=== PATIENT | female | born 1965 | race Caucasian/White ===

== ENCOUNTER 2017-06-14 10:05 | Day surgery (SDC) | payer OTHER ==
[~2017-06-14 10:05] MED LIST: RINGER'S SOLUTION,LACTATED 1,000 ML IV PRN
[2017-06-14] MEDS ORDERED: ACETAMINOPHEN 500 MG TABLET PO ONE (12:25)
[2017-06-14] MEDS ORDERED: RINGER'S SOLUTION,LACTATED 1,000 ML IV PRN (13:00)
[2017-06-14 13:25] VITALS: BP 166/84
--- NOTE | 2017-06-14 14:33 | OR ---
Operative Report - Dictated Report Narrative: OPERATIVE REPORT DATE OF OPERATION: 06/14/2017 PREOPERATIVE DIAGNOSIS: No prior dedicated colon studies. Family history of colon cancer. POSTOPERATIVE DIAGNOSIS: 3 mm cecal polyp (pathology pending) OPERATION: Colonoscopy with hot biopsy forceps polypectomy in the cecum SURGEON: Ankit Leahy MD ANESTHESIA: SANDOVAL Meza CRNA INDICATIONS FOR PROCEDURE: The patient is a 52-year-old female referred by Dr. Zheng. The patient's brother had colon cancer at age 52. The patient has had no previous dedicated colon studies. She is currently asymptomatic FINDINGS: 3 mm area of polypoid change in the cecum (pathology pending). Otherwise normal colonoscopy to the cecum. NARRATIVE OF PROCEDURE: The patient was identified in the holding area, and prior to the administration of anesthetic, a multidisciplinary timeout was observed. With the patient in the left lateral position and after the administration of intravenous sedation, the perineum was inspected. There was no evidence of pilonidal disease or skin breakdown. The external appearance of the anus was normal. Sphincter tone was good. The flexible fiberoptic colonoscope was inserted into the rectum which was insufflated with air. The rectal mucosa and submucosal vascular pattern appeared normal, the prep was seen to be complete. The scope was advanced through the sigmoid colon, up the descending colon, and around the splenic flexure where the triangular haustral architecture of the transverse colon was seen. The scope was advanced across the transverse colon, around the hepatic flexure to the cecum, where the confluence of tenia and the ileocecal valve were identified. Just adjacent to the ileocecal valve was a 3 mm area of possible polypoid change. This was biopsied and then thoroughly destroyed with electrocautery. The site was seen to be complete and hemostatic. The mucosa at this level appeared otherwise normal. The scope was then slowly withdrawn in a circular fashion so that all aspects of colonic mucosa were inspected. The colon was normal in course and caliber. The haustral architecture appeared well preserved throughout with no evidence of external compression. The mucosa and submucosal vascular pattern appeared normal, specifically there was no gross evidence to suggest colitis or inflammatory bowel disease and no AV malformations were seen. No diverticulosis was demonstrated. No additional polyps were encountered. The scope was gradually withdrawn to the level of the rectum. As much insufflated air as possible was removed. The scope was withdrawn from the patient and the procedure terminated. The patient tolerated the anesthetic and procedure well without complication and was transferred back to the ambulatory surgery area awake and in stable condition. The patient remained stable throughout a period of postoperative observation. She denied abdominal discomfort, was able to tolerate by mouth intake, and was up without assistance. I shared the operative findings with the patient and she was given copies of the photographs which appear in the medical record. She was discharged home with instructions not to engage in hazardous activity today , but may resume normal activity tomorrow, and advance diet as tolerated. She is to continue those medications as listed in the history and physical exam. I made arrangements to contact her with the biopsy reports and will make additional recommendations for treatment and follow-up based upon those results. Reviewed and electronically signed
== END 2017-06-14 10:06 | disposition home or self-care (01) ==
LOC: AMB 10:05
PROVIDERS: ATTEND Surgery
PROC: 0DBH8ZX Excision of Cecum, Via Natural or Artificial Opening Endoscopic, Diagnostic (ICD-10-PCS; principal; 2017-06-14 10:45)
DX: Z12.11 Encounter for screening for malignant neoplasm of colon (principal); K63.5 Polyp of colon; I10 Essential (primary) hypertension; E11.9 Type 2 diabetes mellitus without complications; J44.9 Chronic obstructive pulmonary disease, unspecified; K21.9 Gastro-esophageal reflux disease without esophagitis; Z87.891 Personal history of nicotine dependence; Z68.41 Body mass index [BMI] 40.0-44.9, adult; Z80.0 Family history of malignant neoplasm of digestive organs

== ENCOUNTER 2017-06-22 21:30 | Emergency (ER) | payer OTHER ==
[2017-06-22 21:59] LABS: Urine Bilirubin Negative (NEGATIVE); Urine Blood 250 /ul (NEGATIVE); Urine Ketone Negative (NEGATIVE); Urine Protein 100 mg/dL (NEGATIVE); Urine Specific Gravity 1.025 SP.GR. (1.005-1.010); Urine Urobilinogen Normal (NORMAL)
[2017-06-22 22:11] LABS: Urine Appearance Slightly Cloudy; Urine Color Yellow; Urine Nitrite Positive (NEGATIVE); Urine RBC 25-50 /hpf (0-5); Urine WBC 0-5 /hpf (0-5)
[2017-06-22 22:12] LABS: Urine Bacteria TRACE
[2017-06-22 22:12] LABS: Hemoglobin 13.7 gm/dL (12.5-16.0); Mean Cell Volume 88.9 fl (78-100); Mean Corpuscular Hemoglobin 29.7 pg (27-31); Mean Corpuscular Hgb Conc 33.4 g/dl (32-36); Mean Platelet Volume 9.8 fl (6.0-9.5); Neutrophil # 8.7 K/mm3 (1.3-6.0); Neutrophil % 72.7 % (42-75.0); Platelet Count 322 K/mm3 (150-450); Red Blood Count 4.61 M/mm3 (4.2-5.4)
--- NOTE | 2017-06-22 22:14 | ERNOTE ---
ER Female HPI Stated Complaint: rt side abd pain Presenting Symptoms: dysuria Time Seen by Provider: 06/22/17 21:45 Source: patient Exam Limitations: no limitations Immunizations: IMMUNIZATION HX Immunizations Up to Date Yes History of Influenza Vaccine No Hx Pneumococcal Vaccination No Allergies/Adverse Reactions: Allergies acetaminophen [From Percocet] Allergy (Mild, Verified 06/14/17 10:25) Hives started taking this along with Lipitor and Plavix and had the reaction. Unsure to which med. States that she can take Tylenol with no problems and has taken Morphine with no problems as well. atorvastatin calcium [From Lipitor] Allergy (Mild, Verified 06/14/17 10:25) Hives started taking this along with Percocet and Plavix, unsure which med caused the reaction. clopidogrel bisulfate [From Plavix] Allergy (Mild, Verified 06/14/17 10:25) Hives started to take this med along with Lipitor and Percocet, unsure which med caused the reaction oxycodone HCl [From Percocet] Allergy (Mild, Verified 06/14/17 10:25) Hives started taking this along with Lipitor and Plavix and had the reaction. Unsure to which med. Penicillins Allergy (Mild, Verified 06/14/17 10:25) RASH, SWELLING Home Medications: HOME MEDICATIONS Insulin NPH Hum/Reg Insulin Hm [Humulin 70-30 Vial] 30 unit SQ QAM 06/30/12 [ Last Taken Unknown] Metoprolol Tartrate 200 mg PO HS 06/30/12 [Last Taken 06/14/17 05:00] Aspirin [Aspirin Enteric Coated] 81 mg PO DAILY 05/21/17 [Last Taken Unknown] Hydrochlorothiazide [Hydrodiuril] 25 mg PO DAILY 05/21/17 [Last Taken Unknown] Insulin NPH Hum/Reg Insulin Hm [Humulin 70-30] 70 unit SC QPM 05/21/17 [Last Taken Unknown] Lisinopril [Zestril] 40 mg PO BID 05/21/17 [Last Taken 06/14/17 05:00] Methylcellulose [Fiber] 500 mg PO DAILY 05/21/17 [Last Taken Unknown] Multivit-Min/Folic Acid/Vit K1 [Multi For Her 50 Plus Softgel] 1 each PO DAILY 05/21/17 [Last Taken Unknown] Omeprazole 40 mg PO DAILY 05/21/17 [Last Taken Unknown] traMADol HCL [Ultram] 50 mg PO TID PRN 05/21/17 [Last Taken Unknown] traZODone HCL [Desyrel] 50 - 100 mg PO HS PRN 05/21/17 [Last Taken Unknown] Ciprofloxacin HCl [Cipro] 500 mg PO BID #28 tablet 06/22/17 [Last Taken Unknown] Phenazopyridine HCl [Pyridium] 100 mg PO TID #6 tablet 06/22/17 [Last Taken Unknown] - History of Present Illness Narrative: onset of dysuria 2 days ago feeling like "my insides were going to come out". Increasing frequency of urine. Timing: Present: getting worse Quality: Present: severe, burning Onset Location: Present: urethral Radiation: Present: RLQ Activities at Onset: Present: none Sexual [place] History: Present: single partner Modifying Factors - (Worsens): Present: urinating Associated Symptoms: Present: urinary frequency. Absent: fever/chills Prior Treatment: Present: recently seen, treated by physician - for URI Review of Systems - Review of Systems Constitutional: Present: recent illness, malaise EYE: Present: no symptoms reported ENT: Present: nose congestion, nasal drainage Respiratory: Present: cough - last week Cardiology: Present: no symptoms reported Gastrointestinal/Abdominal: Present: diarrhea - prior to these symptoms Genitourinary: Present: See HPI, hematuria Musculoskeletal: Present: no symptoms reported Skin: Present: no symptoms reported Neurological: Present: no symptoms reported Endocrine: Present: no symptoms reported Hematologic/Lymphatic: Present: no symptoms reported Psych: Present: no symptoms reported - Patient's Past Medical History Patient History - Medical: Diabetes Type 2 Insulin Dependent, GERD, Headache Patient History - Cardiac/Respiratory: COPD, Hypertension Patient History - Cancer: No Hx of Cancer Patient History - Surgical Procedures: Colonoscopy, Tubal Ligation, Other Patient History - Other: None - Family History Mother Family History - Medical: , Other Family History - Cardiac/Respiratory: No pertinent hx Family History - Cancer: Cervical Father Family History - Medical: , Diabetes Type 2 Family History - Cardiac/Respiratory: Hypertension, Myocardial Infarction Family History - Cancer: No pertinent family hx - Social History Living Situations: spouse Abuse History: No History of abuse Psych History: No pertinent hx Smoking Status: Former smoker Have you smoked in the past 12 months: No Do you dip or chew tobacco: No Alcohol Use: rarely Drug Use: none - Immunizations Immunizations Up to Date: Yes Hx Pneumococcal Vaccination: No History of Influenza Vaccine: No Physical Exam - Physical Exam General Appearance: Present: wd/wn, alert, mild distress Head Exam: Present: normal inspection, no evidence of injury Neck: Present: normal inspection, full range of motion Respiratory: Present: no respiratory distress, normal breath sounds, no accessory muscle use, lungs clear Cardiovascular/Chest: Present: regular rate, rhythm, no murmur, normal peripheral pulses Gastrointestinal/Abdominal: Present: normal bowel sounds, tenderness - RLQ. Absent: distended, guarding, rebound Back Exam: Present: normal inspection Extremity Exam: Present: normal inspection, normal range of motion Neurological Exam: Present: alert, oriented, normal mood/affect Skin Exam: Present: normal color, warm/dry Lymphatic Exam: Present: no adenopathy ED Progress - Results and Orders Patient's Lab Results:: I have reviewed the patient's lab results. Results and Orders: Laboratory Tests 06/22/17 21:45 Urine Color Yellow Urine Appearance Slightly cloudy Urine pH 6.0 Ur Specific [place] 1.025 Urine Protein 100 H Urine Glucose (UA) Negative Urine Ketones Negative Urine Blood 250 H Urine Nitrate Positive H Urine Bilirubin Negative Prot Sulfosalicylic Acd Pending Urine Urobilinogen Normal Ur Leukocyte Esterase 100 H Urine RBC 25-50 H Urine WBC 0-5 Ur Epithelial Cells 0-5 Urine Bacteria Trace Urine Culture Comments Culture to follow Laboratory Tests 06/22/17 06/22/17 22:07 22:07 WBC 12.0 H Hgb 13.7 Hct 41.0 Plt Count 322 Sodium 142 Potassium 4.1 Chloride 105 Carbon Dioxide 28.0 BUN 33 H Creatinine 1.55 H D Random Glucose 140 H Calcium 9.8 Total Bilirubin 0.2 AST 20 ALT 34 Alkaline Phosphatase 154 Total Protein 8.0 Albumin 3.8 - Vital Signs Patient's Vital Signs:: I have reviewed the patient's vital signs. Vital Signs: Vital Signs 06/22/17 21:36 Temperature 36.4 C L Pulse Rate 79 Respiratory 16 Rate Blood Pressure 230/98 O2 Sat by Pulse 98 Oximetry - Progress/Reassessment Chief Complaint: Genitourinary Problem Departure Clinical Impression: Pyelonephritis - Departure Disposition: Home self-care Condition: Good Instructions: Pyelonephritis, Adult, [id number] Additional Instructions: Take medications until gone. Drink plenty of water. Referrals: Sherry Zheng DO [Primary Care Provider] - Prescriptions: Ciprofloxacin HCl [Cipro] 500 mg PO BID #28 tablet Phenazopyridine HCl [Pyridium] 100 mg PO TID #6 tablet
[2017-06-22] MEDS ORDERED: CIPROFLOXACIN HCL 250 MG TABLET PO ONE (22:21)
[2017-06-22] MEDS ORDERED: PHENAZOPYRIDINE HCL 100 MG TABLET PO ONE (22:23)
[2017-06-22] MEDS ORDERED: PHENAZOPYRIDINE HCL 100 MG TABLET ONE (22:26)
[2017-06-22] MEDS ORDERED: CIPROFLOXACIN HCL 250 MG TABLET ONE (22:26)
[2017-06-22 22:34] LABS: Albumin * 3.8 gm/dl (3.4-5.0); Anion Gap 13.1 mmol/L (6.8-13.8); BUN/Creatinine Ratio 21.3 (9.0-21.6); Bilirubin, Total 0.2 mg/dL (0.0-1.1); Ca. Corrected For Albumin 9.6 mg/dL (8.4-10.2); Calcium * 9.8 mg/dL (7.9-10.9); Potassium 4.1 mmol/L (3.4-4.6)
[2017-06-22 22:42] VITALS: BP 174/88
== END 2017-06-22 22:39 | disposition home or self-care (01) ==
LOC: ER 21:30
DX: N12 Tubulo-interstitial nephritis, not specified as acute or chronic (principal); E11.9 Type 2 diabetes mellitus without complications; Z79.4 Long term (current) use of insulin; K21.9 Gastro-esophageal reflux disease without esophagitis; J44.9 Chronic obstructive pulmonary disease, unspecified; I10 Essential (primary) hypertension

== ENCOUNTER 2018-11-29 11:59 | Observation (INO) ==
--- NOTE | 2018-11-29 12:23 | ERNOTE ---
Date of Service: 11/29/18 Time Seen by Provider: 11/29/18 12:22 Stated Complaint: uri Presenting Symptoms:: cough Source: patient Exam Limitations: no limitations Immunizations: IMMUNIZATION HX Immunizations Up to Date Yes History of Influenza Vaccine Yes Hx Pneumococcal Vaccination No Allergies/Adverse Reactions: Allergies acetaminophen [From Percocet] Allergy (Mild, Verified 11/29/18 14:29) Hivcourtney started taking this along with Lipitor and Plavix and had the reaction. Unsure to which med. States that she can take Tylenol with no problems and has taken Morphine with no problems as well. atorvastatin calcium [From Lipitor] Allergy (Mild, Verified 11/29/18 14:29) Hives started taking this along with Percocet and Plavix, unsure which med caused the reaction. clopidogrel bisulfate [From Plavix] Allergy (Mild, Verified 11/29/18 14:29) Hives started to take this med along with Lipitor and Percocet, unsure which med caused the reaction oxycodone HCl [From Percocet] Allergy (Mild, Verified 11/29/18 14:29) Hives started taking this along with Lipitor and Plavix and had the reaction. Unsure to which med. Penicillins Allergy (Mild, Verified 11/29/18 14:29) RASH, SWELLING Home Medications: HOME MEDICATIONS Aspirin [Aspirin Enteric Coated] 81 mg PO DAILY 05/21/17 [Last Taken Unknown] Methylcellulose [Fiber] 2 gm PO DAILY 05/21/17 [Last Taken Unknown] Multivit-Min/Folic Acid/Vit K1 [Multi For Her 50 Plus Softgel] 1 ea PO DAILY 05/21/17 [Last Taken Unknown] lancets See Dose Instructions .ROUTE .MEDSUPPLY #100 ea 02/21/18 [Last Taken Unknown] blood sugar diagnostic strips See Dose Instructions .ROUTE .MEDSUPPLY #20 ea 03/02/18 [Last Taken Unknown] blood-glucose meter kit See Dose Instructions .ROUTE .MEDSUPPLY #1 ea 03/02/18 [Last Taken Unknown] diphenhydramine 2 % topical gel 1 applic TP TID-QID PRN 03/02/18 [Last Taken Unknown] foot care products pads See Dose Instructions .ROUTE .MEDSUPPLY #1 ea 03/02/18 [Last Taken Unknown] insulin syringe U-100 with needle 1 mL 29 gauge x 1/2" See Dose Instructions .ROUTE .MEDSUPPLY #1 ea 03/02/18 [Last Taken Unknown] blood sugar diagnostic strips See Dose Instructions .ROUTE .MEDSUPPLY #100 ea 04/21/18 [Last Taken Unknown] omeprazole 40 mg capsule,delayed release 40 mg PO DAILY #90 cap 07/05/18 [Last Taken Unknown] hydrochlorothiazide 25 mg tablet 25 mg PO DAILY #30 tab 07/20/18 [Last Taken Unknown] sertraline 50 mg tablet 50 mg PO DAILY #30 tab 08/01/18 [Last Taken Unknown] trazodone 50 mg tablet 50 - 100 mg PO HS PRN #60 tab 10/05/18 [Last Taken Unknown] metformin ER 500 mg tablet,extended release 24 hr 1,000 mg PO BID #120 tab 10/17/18 [Last Taken Unknown] metoprolol tartrate 100 mg tablet 200 mg PO BID #120 tab 10/17/18 [Last Taken Unknown] lisinopril 40 mg tablet 40 mg PO BID #60 tab 10/27/18 [Last Taken Unknown] ranitidine 150 mg tablet 150 mg PO BID #60 tab 10/27/18 [Last Taken Unknown] DiabeticShoe See Dose Instructions .ROUTE .MEDSUPPLY #1 ea 11/01/18 [Last Taken Unknown] acetaminophen 500 mg tablet 1,000 mg PO Q6H PRN tab 11/04/18 [Last Taken Unknown] insulin human U-100 NPH-regulr 70-30 mix 100 unit/mL subcutaneous susp See Rx Instructions SUB-Q .COMPLEX #10 ml 11/08/18 [Last Taken Unknown] insulin syringe U-100 with needle 1 mL 31 gauge x 5/16" See Dose Instructions .ROUTE .MEDSUPPLY #100 ea 11/15/18 [Last Taken Unknown] amlodipine 10 mg tablet See Rx Instructions .ROUTE .COMPLEX #30 tablet 11/16/18 [Last Taken Unknown] furosemide 40 mg tablet See Rx Instructions .ROUTE .COMPLEX #60 tablet 11/16/18 [Last Taken Unknown] gabapentin 600 mg tablet See Rx Instructions .ROUTE .COMPLEX #90 tablet 11/16/18 [Last Taken Unknown] - Pain Score Pain Score #1 Pain Score: 6 - History of Present Ilness Narrative: The patient is a 53 year old female who presents for dyspnea and cough which has been present since yesterday. There are associated symptoms of fatigue and body aches. The patient reports generalized body aches, 6/10. There are no alleviating factors. There are aggravating factors of activity. Previous treatments have included: over the counter decongestant without improvement. The past medical history includes: chronic pain, COPD, DJD, DM HTN, GERD, HLD, anemia, PUD and depression. The social history is positive for previous tobacco use. The patient has had ill contacts at home. Review of Systems - Review of Systems Constitutional: Present: chills, fatigue. Absent: fever EYE: Present: no symptoms reported ENT: Present: ear pain, nose congestion, sore throat. Absent: nasal drainage Respiratory: Present: shortness of breath, cough, wheezing Cardiology: Present: chest pain Gastrointestinal/Abdominal: Present: no symptoms reported. Absent: nausea, vomiting, diarrhea Genitourinary: Present: no symptoms reported. Absent: decreased urinary output Musculoskeletal: Present: no symptoms reported Skin: Present: no symptoms reported. Absent: rash Neurological: Present: no symptoms reported All Other Systems: All systems neg except as marked Medical History (Updated 11/01/18 @ 15:23 by Marychuy Baig MD) Depression (Acute) start sertraline 50 mg daily Type II diabetes mellitus (Chronic) Iron deficiency (Chronic) Chronic pain (Chronic) Peptic ulcer disease (Chronic) GERD (gastroesophageal reflux disease) (Chronic) Hyperlipidemia (Chronic) Type II diabetes mellitus (Chronic) Hypertension (Chronic) Pyelonephritis (Acute) COPD (chronic obstructive pulmonary disease) Onset Date: Unknown Carpal tunnel syndrome Onset Date: ~05/21/17 Chronic pain Onset Date: ~05/21/17 Cubital tunnel syndrome Onset Date: ~05/21/17 DJD (degenerative joint disease) of cervical spine Onset Date: ~05/21/17 Diabetes mellitus, type II Onset Date: Unknown Essential hypertension Onset Date: ~05/21/17 GERD (gastroesophageal reflux disease) Onset Date: Unknown Headache Onset Date: Unknown Hyperlipidemia Onset Date: ~05/21/17 Hypertension Onset Date: Unknown Iron deficiency anemia Onset Date: ~05/21/17 Morbid obesity Onset Date: ~05/21/17 Obesity Class III = extreme obesity PUD (peptic ulcer disease) Onset Date: ~05/21/17 Peripheral neuropathic pain Onset Date: ~05/21/17 Peripheral neuropathy Onset Date: ~05/21/17 Primary osteoarthritis involving multiple joints Onset Date: ~05/21/17 Surgical History: Surgical History (Updated 03/02/18 @ 14:45 by Sheyla Moreno, CRUZ) Colonoscopy planned Onset Date: ~06/14/17 with biopsy. Tosin- hyperplastic polyp. Recheck 5-10 years H/O foot surgery Onset Date: ~2009 Dr Win - right 01/09/2010, left 02/13/2010 - Excision of plantar fibroma History of temporal artery biopsy Onset Date: ~12/10/17 Tosin, right-negative S/P tubal ligation Onset Date: ~1989 Stenosis of peripheral vascular stent Onset Date: ~2011 [facility] Family History: Family History (Updated 03/02/18 @ 14:34 by Sheyla Moreno, CRUZ) Brother Myocardial infarction CVA (cerebral vascular accident) Cancer colon Daughter Lupus Hypertension Diabetes Father , 60's Hypertension Diabetes Myocardial infarction Mother , 60's Amyotrophic lateral sclerosis (ALS) Cancer cervical Sister , 8 month old-pneumonia No problems noted. Sister Embolism Seizure Social History: Preferred Language [place] Smoking Status Former smoker Abuse History No History of abuse Psych History No pertinent hx Alcohol Use none Drug Use none (Last Reviewed 11/25/18 @ 13:44 by Estefany Arcos RN) No Social History Section defined Physical Exam - Physical Exam General Appearance: Present: wd/wn, alert, moderate distress Head Exam: Present: normal inspection Eye Exam: Normal inspection: bilateral Ears, Nose, Throat: Present: normal ENT inspection, normal pharynx Neck: Present: normal inspection Respiratory: Present: chest nontender, respiratory distress, accessory muscle use, decreased breath sounds, wheezing - posterior expiratory wheeze to RLL, inspiratory and expiratory wheeze diffuse anterior Cardiovascular/Chest: Present: regular rate, rhythm, no murmur Neurological Exam: Present: alert, oriented, normal mood/affect Skin Exam: Present: normal color, warm/dry Progress - Date and Time Seen: Date and Time: 11/29/18 14:32 Discussed case with and will admit patient due to hypoxia and possible obstructive pneumonia vs hilar mass. Discussed follow up need for chest CT with . - Results and Orders Patient's Lab Results:: I have reviewed the patient's lab results. - Vital Signs Patient's Vital Signs:: I have reviewed the patient's vital signs. Vital Signs: Vital Signs 11/29/18 12:19 Temperature 37.5 C Pulse Rate 78 Respiratory Rate 16 Blood Pressure 160/87 H O2 Sat by Pulse Oximetry 91 L - X-Ray X-Ray #1 X-Ray: chest Interpretation: Reviewed by me X-ray Comments: IMPRESSION: 1. Enlarged appearance of the right hilum, with anterior segment right upper lobe atelectasis. Correlate clinically for postobstructive pneumonia. Further evaluation by chest CT is recommended, to rule out a possible right hilar mass or lymphadenopathy. CT imaging can be performed on nonemergent basis unless otherwise clinically indicated. 2. Additional comments are as above. Emergency room provider Sharmaine Purvis was informed regarding the above results by telephone on 11/29/2018 1:13 PM. - Progress/Reassessment Chief Complaint: Cough Progress:: Unchanged Progress Note-Subjective: 11/29/18 14:34 Remains having wheezing to right post treatment with diminished lung sounds. Follow treatment patient sats at rest were noted to be 86% on RA and was placed on oxygen 2l/nc. Departure Clinical Impression: Hypoxia Pneumonia Qualifiers: Pneumonia type: due to unspecified organism Laterality: right Lung location: upper lobe of lung Qualified Code(s): J18.1 - Lobar pneumonia, unspecified organism - Departure Disposition: Still a patient Condition: Fair
[2018-11-29] MEDS ORDERED: METHYLPREDNISOLONE SOD SUCC/PF 125 MG/2 ML VIAL IV ONE (12:30)
[2018-11-29] MEDS ORDERED: ALBUTEROL SULFATE/IPRATROPIUM 3 ML NEBU IH ONE (12:30)
[2018-11-29 12:43] LABS: Hematocrit 43.9 % (37.0-47.0); Hemoglobin 14.1 gm/dL (12.5-16.0); Mean Cell Volume 91.6 fl (78-100); Mean Corpuscular Hemoglobin 29.4 pg (27-31); Mean Corpuscular Hgb Conc 32.1 g/dl (32-36); Mean Platelet Volume 9.8 fl (8-12.5); Neutrophil # 7.3 K/mm3 (1.3-6.0); Neutrophil % 78.4 % (42-75.0); Platelet Count 322 K/mm3 (150-450); Red Blood Count 4.79 M/mm3 (4.2-5.4); Red Cell Distribution Width 12.8 % (11.5-14.0); White Blood Count 9.3 K/mm3 (4.0-10.5)
[2018-11-29 12:56] LABS: Albumin * 3.4 gm/dl (3.4-5.0); Anion Gap 13.5 mmol/L (6.8-13.8); BUN/Creatinine Ratio 22.8 (9.0-21.6); Bilirubin, Total 0.3 mg/dL (0.0-1.1); Calcium * 9.8 mg/dL (7.9-10.9); Carbon Dioxide 27.9 mmol/L (24-32.6); Potassium 4.4 mmol/L (3.4-4.6); Total Protein 7.5 gm/dL (6.2-8.2)
[2018-11-29] MEDS ORDERED: AZITHROMYCIN 250 MG TABLET PO ONE (13:23)
[2018-11-29] MEDS ORDERED: cefTRIAXone SODIUM 1,000 MG/100 ML BAG IV ONE (13:23)
[2018-11-29] MEDS ORDERED: traZODone HCL 50 MG TABLET PO PRN (16:43)
[2018-11-29] MEDS ORDERED: BENZONATATE 100 MG CAPSULE PO PRN (16:43)
[2018-11-29] MEDS ORDERED: guaiFENesin 100 MG/5 ML BTL PO PRN (16:49)
[2018-11-29] MEDS ORDERED: ALBUTEROL SULFATE/IPRATROPIUM 3 ML NEBU IH PRN (16:49)
[2018-11-29] MEDS ORDERED: HUM INSULIN NPH/REG INSULIN HM 100 UNIT/ML VIAL SC SCH (17:00)
[2018-11-29] MEDS: GABAPENTIN 600 MG TABLET PO SCH (17:06)
--- NOTE | 2018-11-29 17:18 | HP ---
Chief Complaint - Chief Complaint Date of Service: 11/29/18 Time of Service: 16:45 Chief Complaint: Shortness of breath, chest tightness, productive cough History of Present Illness: 53-year-old female with a past medical history of COPD, depression, GERD, hyperlipidemia, hypertension, diabetes mellitus type 2, iron deficiency anemia, morbid obesity, peripheral neuropathy presents with complaint of productive cough, increased green sputum production and shortness of breath times 1 day. She is a former smoker but has a [id number] history of smoking, began smoking at the age of 14 and quit 3 years ago. She states her symptoms began last night. She had a sick contact with a granddaughter who had bronchitis and asthma exacerbation. Denies fever, abdominal pain. Associated with chest tightness. She presented today to the ER and was admitted for COPD exacerbation and pneumonia. Chest x-ray showed enlarged right hilum with anterior segment right upper lobe atelectasis, possible postobstructive pneumonia. Radiologist recommends CT chest as an outpatient to rule out right hilar mass or lymphadenopathy. Medical History (Updated 11/29/18 @ 14:34 by VANCE Voss) Depression (Acute) start sertraline 50 mg daily Iron deficiency (Chronic) Chronic pain (Chronic) Peptic ulcer disease (Chronic) GERD (gastroesophageal reflux disease) (Chronic) Hyperlipidemia (Chronic) Type II diabetes mellitus (Chronic) Hypertension (Chronic) Pyelonephritis (Acute) COPD (chronic obstructive pulmonary disease) Onset Date: Unknown Carpal tunnel syndrome Onset Date: ~05/21/17 Chronic pain Onset Date: ~05/21/17 Cubital tunnel syndrome Onset Date: ~05/21/17 DJD (degenerative joint disease) of cervical spine Onset Date: ~05/21/17 GERD (gastroesophageal reflux disease) Onset Date: Unknown Headache Onset Date: Unknown Hyperlipidemia Onset Date: ~05/21/17 Hypertension Onset Date: Unknown Iron deficiency anemia Onset Date: ~05/21/17 Morbid obesity Onset Date: ~05/21/17 Obesity Class III = extreme obesity PUD (peptic ulcer disease) Onset Date: ~05/21/17 Peripheral neuropathic pain Onset Date: ~05/21/17 Peripheral neuropathy Onset Date: ~05/21/17 Primary osteoarthritis involving multiple joints Onset Date: ~05/21/17 Surgical History: Surgical History (Updated 03/02/18 @ 14:45 by Sheyal Moreno RN) Colonoscopy planned Onset Date: ~06/14/17 with biopsy. Tosin- hyperplastic polyp. Recheck 5-10 years H/O foot surgery Onset Date: ~2009 Dr Win - right 01/09/2010, left 02/13/2010 - Excision of plantar fibroma History of temporal artery biopsy Onset Date: ~12/10/17 Tosin, right-negative S/P tubal ligation Onset Date: ~1989 Stenosis of peripheral vascular stent Onset Date: ~2011 [facility] Family History: Family History (Updated 03/02/18 @ 14:34 by Sheyla Moreno RN) Brother Cancer colon CVA (cerebral vascular accident) Myocardial infarction Daughter Diabetes Hypertension Lupus Father , 60's Myocardial infarction Diabetes Hypertension Mother , 60's Cancer cervical Amyotrophic lateral sclerosis (ALS) Sister , 8 month old-pneumonia No problems noted. Sister Seizure Embolism Social History: Patient Lives/Resources Home Utilized Preferred Language Italian Do you have any christian or No cultural preference? Smoking Status Former smoker Have you smoked in the past 12 No months Abuse History No History of abuse Psych History No pertinent hx Alcohol Use none Drug Use none (Last Reviewed 11/25/18 @ 13:44 by Estefany Arcos RN) No Social History Section defined Review Of Systems (GEN) - Review of Systems Generalized/Overall Review: Absent: Fever Respiratory: Present: Cough, Shortness of Breath Cardiac: Present: Other - Chest tightness Abdominal: Absent: Abdominal Pain Misc: All systems neg except as marked Immunizations: IMMUNIZATION HX Immunizations Up to Date Yes History of Influenza Vaccine Yes Hx Pneumococcal Vaccination No Allergies/Adverse Reactions: Allergies Allergy/AdvReac Type Severity Reaction Status Date / Time acetaminophen [From Percocet] Allergy Mild Hives Verified 11/29/18 14:29 atorvastatin calcium Allergy Mild Hives Verified 11/29/18 14:29 [From Lipitor] clopidogrel bisulfate Allergy Mild Hives Verified 11/29/18 14:29 [From Plavix] oxycodone HCl [From Percocet] Allergy Mild Hives Verified 11/29/18 14:29 Penicillins Allergy Mild RASH, Verified 11/29/18 14:29 SWELLING Home Medications: HOME MEDICATIONS Aspirin [Aspirin Enteric Coated] 81 mg PO DAILY 05/21/17 [Last Taken Unknown] lancets See Dose Instructions .ROUTE .MEDSUPPLY #100 ea 02/21/18 [Last Taken Unknown] blood sugar diagnostic strips See Dose Instructions .ROUTE .MEDSUPPLY #20 ea 03/02/18 [Last Taken Unknown] blood-glucose meter kit See Dose Instructions .ROUTE .MEDSUPPLY #1 ea 03/02/18 [Last Taken Unknown] insulin syringe U-100 with needle 1 mL 29 gauge x 1/2" See Dose Instructions .ROUTE .MEDSUPPLY #1 ea 03/02/18 [Last Taken Unknown] blood sugar diagnostic strips See Dose Instructions .ROUTE .MEDSUPPLY #100 ea 04/21/18 [Last Taken Unknown] omeprazole 40 mg capsule,delayed release 40 mg PO DAILY #90 cap 07/05/18 [Last Taken Unknown] trazodone 50 mg tablet 50 - 100 mg PO HS PRN #60 tab 10/05/18 [Last Taken Unknown] metoprolol tartrate 100 mg tablet 200 mg PO BID #120 tab 10/17/18 [Last Taken Unknown] lisinopril 40 mg tablet 40 mg PO BID #60 tab 10/27/18 [Last Taken Unknown] ranitidine 150 mg tablet 150 mg PO BID #60 tab 10/27/18 [Last Taken Unknown] acetaminophen 500 mg tablet 1,000 mg PO Q6H PRN tab 11/04/18 [Last Taken Unknown] insulin syringe U-100 with needle 1 mL 31 gauge x 12/29" See Dose Instructions .ROUTE .MEDSUPPLY #100 ea 11/15/18 [Last Taken Unknown] Albuterol Sulfate [Albuterol Sulfate 2.5 MG/0.5ML] 1 vial INHALATION Q6H PRN 11/29/18 [Last Taken Unknown] Amlodipine Besylate 1 dose PO DAILY 11/29/18 [Last Taken Unknown] Benzonatate 100 mg PO HS PRN 11/29/18 [Last Taken Unknown] Furosemide [Lasix] 40 mg PO BID 11/29/18 [Last Taken Unknown] Gabapentin [Neurontin] 600 mg PO TID 11/29/18 [Last Taken Unknown] Insulin NPH Hum/Reg Insulin Hm [Humulin 70-30] 35 units SUB-Q DAILY 11/29/18 [Last Taken Unknown] Insulin NPH Hum/Reg Insulin Hm [Humulin 70-30] 75 unit SC HS 11/29/18 [Last Taken Unknown] Phentermine HCl [Adipex-P] 37.5 mg PO DAILY 11/29/18 [Last Taken Unknown] metFORMIN HCL [Metformin HCl ER] 1,000 mg PO BIDWM 11/29/18 [Last Taken Unknown] Exam - Exam Vital Signs: Vital Signs - Last Taken Temp 36.8 C 11/29/18 13:48 Pulse 87 11/29/18 14:00 Resp 16 11/29/18 14:00 BP 151/76 H 11/29/18 14:00 Pulse Ox 95 11/29/18 14:00 Constitutional: Present: Alert, Cooperative, Well developed, Well nourished, No distress, Obese ENT Exam: Present: hearing grossly normal Eye Exam: bilateral eye: normal inspection Neck: Present: non-tender, normal inspection, trachea midline. Absent: lymphadenopathy (R), lymphadenopathy (L) Back Exam: Present: normal inspection Respiratory: Present: lungs clear, normal breath sounds, no respiratory distress, no accessory muscle use, wheezing - Diffuse throughout. Absent: crackles, rhonchi Cardiovascular/Chest: Present: normal peripheral pulses, regular rate, rhythm, no edema Peripheral Pulses: dorsalis-pedis (R): 1+, dorsalis-pedis (L): 1+ Abdomen: Present: Normal bowel sounds, soft, nontender, nondistended Skin Exam: Present: normal color, warm/dry Neurologic: Present: alert, normal mood/affect Eye contact: Present: cooperative Thoughts: Present: normal thought pattern, normal mood /affect Diagnostic Studies: Abnormal Lab Results 11/29/18 11/29/18 Range/Units 12:35 12:35 Neutrophils % 78.4 H (42-75.0) % Lymphocytes % 13.8 L (20-51) % Neutrophils # 7.3 H (1.3-6.0) K/mm3 Lymphocytes # 1.28 L (1.5-3.5) k/mm3 BUN 29 H (3-23) mg/dL Est GFR (Non-Af Amer) 46 L (60-130) mL/min BUN/Creatinine Ratio 22.8 H (9.0-21.6) Random Glucose 207 H (70-110) mg/dL Laboratory Results WBC 9.3 K/mm3 (4.0-10.5) 11/29/18 12:35 RBC 4.79 M/mm3 (4.2-5.4) 11/29/18 12:35 Hgb 14.1 gm/dL (12.5-16.0) 11/29/18 12:35 Hct 43.9 % (37.0-47.0) 11/29/18 12:35 MCV 91.6 fl (78-100) 11/29/18 12:35 MCH 29.4 pg (27-31) 11/29/18 12:35 MCHC 32.1 g/dl (32-36) 11/29/18 12:35 RDW 12.8 % (11.5-14.0) 11/29/18 12:35 Plt Count 322 K/mm3 (150-450) 11/29/18 12:35 MPV 9.8 fl (8-12.5) 11/29/18 12:35 Immature Gran % (Auto) 0.20 % (0.001-0.429) 11/29/18 12: Immature Gran # (Auto) 0.02 K/mm3 (0.000-0.0310) 11/29/18 12:35 78.4 % (42-75.0) H 11/29/18 12:35 13.8 % (20-51) L 11/29/18 12:35 7.2 % (0.0-9) 11/29/18 12:35 0.2 % (0.0-3.0) 11/29/18 12:35 0.2 % (0.0-1.0) 11/29/18 12:35 Nucleated RBC % 0.0 k/mm3 (0-1) 11/29/18 12:35 7.3 K/mm3 (1.3-6.0) H 11/29/18 12:35 1.28 k/mm3 (1.5-3.5) L 11/29/18 12:35 0.7 k/mm3 (0.0-1.0) 11/29/18 12:35 0.0 k/mm3 (0.0-0.7) 11/29/18 12:35 Absolute Basophils 0.0 k/mm3 (0.0-0.1) 11/29/18 12:35 Sodium 134 mmol/L (132-142) 11/29/18 12:35 136 mmol/L (130-142) 11/29/18 12:35 Potassium 4.4 mmol/L (3.4-4.6) 11/29/18 12:35 Chloride 97 mmol/L (97-106) 11/29/18 12:35 Carbon Dioxide 27.9 mmol/L (24-32.6) 11/29/18 12:35 13.5 mmol/L (6.8-13.8) 11/29/18 12:35 BUN 29 mg/dL (3-23) H 11/29/18 12:35 1.27 mg/dL (0.4-1.4) 11/29/18 12:35 Est GFR (Non-Af Amer) 46 mL/min (60-130) L 11/29/18 12:35 22.8 (9.0-21.6) H 11/29/18 12:35 207 mg/dL (70-110) H 11/29/18 12:35 2.0 mmol/L (0.4-2.0) 11/29/18 12:35 Calcium 9.8 mg/dL (7.9-10.9) 11/29/18 12:35 Calcium Adj for Albumin 10.0 mg/dL (8.4-10.2) 11/29/18 12:35 0.3 mg/dL (0.0-1.1) 11/29/18 12:35 AST 19 U/L (0-48) 11/29/18 12:35 ALT 33 U/L (19-67) 11/29/18 12:35 113 U/L (50-170) 11/29/18 12:35 7.5 gm/dL (6.2-8.2) 11/29/18 12:35 3.4 gm/dl (3.4-5.0) 11/29/18 12:35 Influenza Type A Ag Negative (NEGATIVE) 11/29/18 12:41 Influenza Type B Ag Negative (NEGATIVE) 11/29/18 12:41 Assessment/Plan - Narrative Narrative: 53-year-old female with a past medical history of COPD, depression, GERD, hyperlipidemia, hypertension, diabetes mellitus type 2, iron deficiency anemia, morbid obesity, peripheral neuropathy presents with complaint of cough, increased sputum production and shortness of breath times 1 day. She presented today to the ER and was admitted for COPD exacerbation and pneumonia. Chest x- ray showed enlarged right hilum with anterior segment right upper lobe atelectasis, possible postobstructive pneumonia. Radiologist recommends CT chest as an outpatient to rule out right hilar mass or lymphadenopathy. - Assessment/Plan (1) COPD exacerbation Assessment: Continue with steroids and antibiotics (azithromycin and ceftriaxone). Continue with duo nebs, and wean off of oxygen to a goal oxygenation of 92%. Problem: Acute (2) Pneumonia Assessment: Continue with ceftriaxone and azithromycin. Problem: Acute Qualifiers: Pneumonia type: due to unspecified organism Laterality: right Lung location: upper lobe of lung Qualified Code(s): J18.1 - Lobar pneumonia, unspecified organism (3) Diabetes mellitus, type II Assessment: Cerner is elevated likely secondary to steroid use. Restart home dose of insulin. Problem: Acute Qualifiers: Diabetes mellitus ferry terminal agent insulin use: with ferry terminal agent use (4) GERD (gastroesophageal reflux disease) Assessment: Restart home dose of antacid. Problem: Chronic Qualifiers: (5) Hypertension Assessment: Blood pressure is elevated. Restart home blood pressure medications. Problem: Chronic Qualifiers:
[2018-11-29] MEDS: ACETAMINOPHEN 500 MG TABLET PO PRN (19:06)
[2018-11-29] MEDS: FUROSEMIDE 40 MG TABLET PO SCH (20:43)
[2018-11-29] MEDS: METOPROLOL TARTRATE 100 MG TABLET PO SCH (20:44)
[2018-11-29] MEDS: LISINOPRIL 40 MG TABLET PO SCH (20:45)
[2018-11-29] MEDS: FAMOTIDINE 20 MG TABLET PO SCH (20:45)
[2018-11-29] MEDS ORDERED: INSULIN REGULAR, HUMAN 100 UNITS/ML VIAL SC ONE (21:30)
[2018-11-29] MEDS ORDERED: NORMAL SALINE 250 ML IV ONE (21:30)
[2018-11-29] MEDS ORDERED: INSULIN REGULAR, HUMAN 100 UNITS/ML VIAL ONE (21:34)
[2018-11-30 05:19] LABS: Hematocrit 41.1 % (37.0-47.0); Mean Cell Volume 91.9 fl (78-100); Mean Corpuscular Hemoglobin 29.1 pg (27-31); Mean Corpuscular Hgb Conc 31.6 g/dl (32-36); Mean Platelet Volume 9.7 fl (8-12.5); Neutrophil # 5.1 K/mm3 (1.3-6.0); Neutrophil % 74.8 % (42-75.0); Platelet Count 308 K/mm3 (150-450); Red Blood Count 4.47 M/mm3 (4.2-5.4); Red Cell Distribution Width 12.8 % (11.5-14.0); White Blood Count 6.8 K/mm3 (4.0-10.5)
[2018-11-30 05:34] LABS: Albumin * 3.1 gm/dl (3.4-5.0); Anion Gap 15.4 mmol/L (6.8-13.8); BUN/Creatinine Ratio 31.4 (9.0-21.6); Bilirubin, Total 0.2 mg/dL (0.0-1.1); Ca. Corrected For Albumin 10.1 mg/dL (8.4-10.2); Calcium * 9.7 mg/dL (7.9-10.9); Carbon Dioxide 26.7 mmol/L (24-32.6); Potassium 5.1 mmol/L (3.4-4.6)
[2018-11-30] MEDS ORDERED: HUM INSULIN NPH/REG INSULIN HM 100 UNIT/ML VIAL SC SCH ×3 (07:00→17:00)
[2018-11-30] MEDS: ACETAMINOPHEN 500 MG TABLET PO PRN (07:50)
[2018-11-30] MEDS ORDERED: AZITHROMYCIN 250 MG TABLET PO SCH (09:00)
[2018-11-30] MEDS ORDERED: ASPIRIN 81 MG TABLET.DR PO SCH (09:00)
[2018-11-30] MEDS ORDERED: predniSONE 20 MG TABLET PO SCH (09:00)
[2018-11-30] MEDS ORDERED: amLODIPine BESYLATE 10 MG TABLET PO SCH (09:00)
[2018-11-30] MEDS: METOPROLOL TARTRATE 100 MG TABLET PO SCH (09:46)
[2018-11-30] MEDS: LISINOPRIL 40 MG TABLET PO SCH (09:47)
[2018-11-30] MEDS: FAMOTIDINE 20 MG TABLET PO SCH (09:51)
[2018-11-30] MEDS: FUROSEMIDE 40 MG TABLET PO SCH (09:52)
[2018-11-30] MEDS: GABAPENTIN 600 MG TABLET PO SCH (09:52)
--- NOTE | 2018-11-30 12:12 | DS ---
(1) COPD exacerbation Diagnosis(s): She states she feels better today. Continue with antibiotics and steroids. Problem: Acute (2) Pneumonia Diagnosis(s): Today is day 2 of antibiotic management. I will do send her home on azithromycin for 3 more days and cefuroxime for 5 more days. Problem: Acute Qualifiers: Pneumonia type: due to unspecified organism Laterality: right Lung lo cation: upper lobe of lung Qualified Code(s): J18.1 - Lobar pneumonia, unspecified organism (3) Diabetes mellitus, type II Diagnosis(s): Blood sugars elevated secondary to steroids. Continue insulin at home doses. Problem: Acute Qualifiers: Diabetes mellitus moth exterminator insulin use: with moth exterminator use (4) Hypertension Diagnosis(s): Blood pressures are elevated secondary to not receiving her medications. Status post her medications her blood pressure improved to 159 systolic. Problem: Chronic Qualifiers: Hypertension type: essential hypertension (5) GERD (gastroesophageal reflux disease) Diagnosis(s): Stable Problem: Chronic Qualifiers: (6) Hilar mass Diagnosis(s): CT scan showed a right hilar mass. She will need an outpatient CT of the chest performed in order to rule out mass versus adenopathy. Problem: Acute Description of Stay: 53-year-old female with a past medical history of COPD, depression, GERD, hyperlipidemia, hypertension, diabetes mellitus type 2, iron deficiency anemia, morbid obesity, peripheral neuropathy presents with complaint of productive cough, increased green sputum production and shortness of breath times 1 day. She is a former smoker but has a [id number] history of smoking, began smoking at the age of 14 and quit 3 years ago. She states her symptoms began last night. She had a sick contact with a granddaughter who had bronchitis and asthma exacerbation. Denies fever, abdominal pain. Associated with chest tightness. She presented to the ER and was admitted for COPD exacerbation and pneumonia. Chest x-ray showed enlarged right hilum with anterior segment right upper lobe atelectasis, possible postobstructive pneumonia. Radiologist recommends CT chest as an outpatient to rule out right hilar mass or lymphadenopathy. I will send her home prednisone 40 mg for 7 days total, azithromycin 250 mg for 5 days total, cefuroxime 500 mg twice a day for 7 days total. Procedures Performed: none Results and Findings: Lab Pending Results 11/29/18 12:35: WBC 9.3, RBC 4.79, Hgb 14.1, Hct 43.9, MCV 91.6, MCH 29.4, MCHC 32.1, RDW 12.8, Plt Count 322, MPV 9.8, Immature Gran % (Auto) 0.20, Immature Gran # (Auto) 0.02, Neutrophils % 78.4 H, Lymphocytes % 13.8 L, Monocytes % 7.2, Eosinophils % 0.2, Basophils % 0.2, Nucleated RBC % 0.0, Neutrophils # 7.3 H, Lymphocytes # 1.28 L, Monocytes # 0.7, Eosinophils # 0.0, Absolute Basophils 0.0 11/29/18 12:35: Sodium 134, Plasma Sodium 136, Potassium 4.4, Chloride 97, Carbon Dioxide 27.9, Anion Gap 13.5, BUN 29 H, Creatinine 1.27, Est GFR (Non-Af Amer) 46 L, BUN/Creatinine Ratio 22.8 H, Random Glucose 207 H, Calcium 9.8, Calcium Adj for Albumin 10.0, Total Bilirubin 0.3, AST 19, ALT 33, Alkaline Phosphatase 113, Total Protein 7.5, Albumin 3.4 11/29/18 12:35: Lactic Acid, Venous 2.0 11/29/18 12:41: Influenza Type A Ag Negative, Influenza Type B Ag Negative 11/30/18 05:05: WBC 6.8 D, RBC 4.47, Hgb 13.0, Hct 41.1, MCV 91.9, MCH 29.1, MCHC 31.6 L, RDW 12.8, Plt Count 308, MPV 9.7, Immature Gran % (Auto) 0.70 H, Immature Gran # (Auto) 0.05 H, Neutrophils % 74.8, Lymphocytes % 15.7 L, Monocytes % 8.7, Eosinophils % 0.0, Basophils % 0.1, Nucleated RBC % 0.0, Neutrophils # 5.1, Lymphocytes # 1.06 L, Monocytes # 0.6, Eosinophils # 0.0, Absolute Basophils 0.0 11/30/18 05:05: Sodium 137, Plasma Sodium 140, Potassium 5.1 H, Chloride 100, Carbon Dioxide 26.7, Anion Gap 15.4 H, BUN 43 H, Creatinine 1.37, Est GFR (Non- Af Amer) 43 L, BUN/Creatinine Ratio 31.4 H, Random Glucose 264 H, Calcium 9.7, Calcium Adj for Albumin 10.1, Total Bilirubin 0.2, AST 15, ALT 30, Alkaline Phosphatase 92, Total Protein 7.0, Albumin 3.1 L Discharge Location: Home Disposition: Home self-care Condition: Fair Discharge Activity: Activity as tolerated Discharge Diet: Consistent carbs Referrals: Marychuy Baig MD [Primary Care Provider] - Prescriptions (Any new or edited meds): Cefuroxime Axetil [Cefuroxime] 500 mg PO BID #11 tab guaiFENesin [Expectorant] 200 mg PO Q4H PRN 7 Days #30 tab PRN Reason: Cough predniSONE [Prednisone] 40 mg PO DAILY #5 tab Azithromycin [Zithromax] 250 mg PO DAILY #3 tab Complete Home Medications List: Complete Home Medication List: Aspirin [Aspirin Enteric Coated] 81 mg PO DAILY 05/21/17 lancets See Dose Instructions .ROUTE .MEDSUPPLY #100 ea 02/21/18 blood sugar diagnostic strips See Dose Instructions .ROUTE .MEDSUPPLY #20 ea 03/02/18 blood-glucose meter kit See Dose Instructions .ROUTE .MEDSUPPLY #1 ea 03/02/18 insulin syringe U-100 with needle 1 mL 29 gauge x 08/17" See Dose Instructions .ROUTE .MEDSUPPLY #1 ea 03/02/18 blood sugar diagnostic strips See Dose Instructions .ROUTE .MEDSUPPLY #100 ea 04/21/18 omeprazole 40 mg capsule,delayed release 40 mg PO DAILY #90 cap 07/05/18 trazodone 50 mg tablet 50 - 100 mg PO HS PRN #60 tab 10/05/18 metoprolol tartrate 100 mg tablet 200 mg PO BID #120 tab 10/17/18 lisinopril 40 mg tablet 40 mg PO BID #60 tab 10/27/18 ranitidine 150 mg tablet 150 mg PO BID #60 tab 10/27/18 acetaminophen 500 mg tablet 1,000 mg PO Q6H PRN tab 11/04/18 insulin syringe U-100 with needle 1 mL 31 gauge x 12/29" See Dose Instructions .ROUTE .MEDSUPPLY #100 ea 11/15/18 Albuterol Sulfate [Albuterol Sulfate 2.5 MG/0.5ML] 1 vial INHALATION Q6H PRN 11/29/18 Amlodipine Besylate 1 dose PO DAILY 11/29/18 Benzonatate 100 mg PO HS PRN 11/29/18 Furosemide [Lasix] 40 mg PO BID 11/29/18 Gabapentin [Neurontin] 600 mg PO TID 11/29/18 Insulin NPH Hum/Reg Insulin Hm [Humulin 70-30] 35 units SUB-Q DAILY 11/29/18 Insulin NPH Hum/Reg Insulin Hm [Humulin 70-30] 75 unit SC HS 11/29/18 Phentermine HCl [Adipex-P] 37.5 mg PO DAILY 11/29/18 metFORMIN HCL [Metformin HCl ER] 1,000 mg PO BIDWM 11/29/18 Azithromycin [Zithromax] 250 mg PO DAILY #3 tab 11/30/18 Cefuroxime Axetil [Cefuroxime] 500 mg PO BID #11 tab 11/30/18 guaiFENesin [Expectorant] 200 mg PO Q4H PRN 7 Days #30 tab 11/30/18 predniSONE [Prednisone] 40 mg PO DAILY #5 tab 11/30/18
[2018-11-30 14:42] VITALS: BP 156/72
== END 2018-11-30 14:55 | disposition home or self-care (01) ==
LOC: ER 11:59 → MS 11:59
PROVIDERS: ADMIT Internal Medicine; ATTEND Internal Medicine
CPT/HCPCS: 36415; 71020; 71046; 80053; 83605; 85025; 87040; 87400; 87449; 94640; 94664; 96361; 96365; 96372; 96375; 99285; G0378

== ENCOUNTER 2019-09-16 15:48 | Inpatient (IN) ==
[2019-09-16] MEDS ORDERED: NORMAL SALINE 1,000 ML IV ONE ×4 (16:16→20:23)
--- NOTE | 2019-09-16 16:16 | ERNOTE ---
Dizziness ER Record Date of Service: 09/16/19 Presenting Symptoms: dizziness, weakness Time Seen by Provider: 09/16/19 16:05 Source: patient, family - Exam Limitations: no limitations Immunizations: IMMUNIZATION HX Immunizations Up to Date Yes History of Influenza Vaccine Yes Hx Pneumococcal Vaccination No Allergies/Adverse Reactions: Allergies Allergy/AdvReac Type Severity Reaction Status Date / Time atorvastatin calcium Allergy Mild Hives Verified 09/16/19 19:34 [From Lipitor] clopidogrel bisulfate Allergy Mild Hives Verified 09/16/19 19:34 [From Plavix] oxycodone HCl [From Percocet] Allergy Mild Hives Verified 09/16/19 19:34 Penicillins Allergy Mild RASH, Verified 09/16/19 19:34 SWELLING Home Medications: HOME MEDICATIONS blood sugar diagnostic See Dose Instructions .ROUTE .MEDSUPPLY #20 ea 03/02/18 [Last Taken Unknown] blood-glucose meter See Dose Instructions .ROUTE .MEDSUPPLY #1 ea 03/02/18 [Last Taken Unknown] acetaminophen 500 mg tablet 1,000 mg PO Q6H PRN tab 11/04/18 [Last Taken Unknown] albuterol sulfate 2.5 mg/0.5 mL solution for nebulization 2.5 mg INHALATION Q6H PRN #30 ea 12/07/18 [Last Taken Unknown] blood-glucose meter See Dose Instructions .ROUTE .MEDSUPPLY #1 ea 03/01/19 [Last Taken Unknown] lancets See Dose Instructions .ROUTE .MEDSUPPLY #100 ea 03/01/19 [Last Taken Unknown] albuterol sulfate 90 mcg/actuation aerosol inhaler 2 inh IH Q6H PRN #8.5 g 04/14/19 [Last Taken Unknown] tiotropium bromide 18 mcg capsule with inhalation device 1 cap IH DAILY 04/27/19 [Last Taken Unknown] hydrocodone 5 mg-acetaminophen 325 mg tablet 1 tab PO Q8H PRN #30 tab 06/15/19 [Last Taken Unknown] blood sugar diagnostic See Dose Instructions .ROUTE .MEDSUPPLY #100 ea 06/20/19 [Last Taken Unknown] lisinopril 40 mg tablet 40 mg PO BID #60 tab 06/20/19 [Last Taken Unknown] ranitidine HCl 150 mg tablet 150 mg PO BID #60 tab 06/20/19 [Last Taken Unknown] sertraline 100 mg tablet 100 mg PO DAILY #90 tab 07/07/19 [Last Taken Unknown] insulin syringe-needle U-100 1 mL 31 gauge x 12/29" See Dose Instructions .ROUTE .MEDSUPPLY #100 ea 07/20/19 [Last Taken Unknown] trazodone 100 mg tablet 100 mg PO HS PRN #30 tab 07/20/19 [Last Taken Unknown] aspirin 81 mg tablet,delayed release 81 mg PO DAILY 07/28/19 [Last Taken Unknown] colestipol 1 gram tablet 1 g PO BID 07/28/19 [Last Taken Unknown] multivitamin 1 tab PO DAILY 07/28/19 [Last Taken Unknown] tiotropium bromide 18 mcg capsule with inhalation device 1 cap IH DAILY 07/28/19 [Last Taken Unknown] amlodipine 10 mg tablet See Rx Instructions .ROUTE .COMPLEX #90 tab 09/11/19 [Last Taken Unknown] gabapentin 800 mg tablet See Rx Instructions .ROUTE .COMPLEX #270 tablet 09/11/19 [Last Taken Unknown] metformin 500 mg tablet,extended release 24 hr See Rx Instructions .ROUTE .COMPLEX #360 tab 09/11/19 [Last Taken Unknown] metoprolol tartrate 100 mg tablet See Rx Instructions .ROUTE .COMPLEX #360 tab 09/11/19 [Last Taken Unknown] omeprazole 40 mg capsule,delayed release See Rx Instructions .ROUTE .COMPLEX #90 capsule 09/11/19 [Last Taken Unknown] furosemide 40 mg tablet 40 mg PO DAILY #30 tab 09/13/19 [Last Taken Unknown] Insulin NPH Hum/Reg Insulin Hm [Humulin 70/30 U-100 Insulin] 35 unit SUBCUT QPM 09/16/19 [Last Taken Unknown] Insulin NPH Hum/Reg Insulin Hm [Humulin 70/30 U-100 Insulin] 75 unit SUBCUT QAM 09/16/19 [Last Taken Unknown] - History of Present Illness Narrative: 54 yr old female with 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 States the abdominal pain worsened three days ago. She saw her PCP Dr. Rivers in August for RUQ abdominal pain. Ultrasound done at that time found the gallbladder to be normal, and fatty liver. RUQ abdominal pain is sharp and intermittent. Rates it 8/10. Denies any N/V/D. Worse with laying down and eating. Last BM was yesterday. Decreased oral intake and decreased urination. Reports SOB, weakness, dizziness and difficulty walking the past two days. Reports a falling tendency to the left side. Prior to the past week she did not require assistance in ambulation. 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 She is currently undergoing chemotherapy every three weeks. She has had two treatments, the next is due September 26. She has two more rounds of chemotherapy to complete and then will start radiation at [place]. Head CT in July 2019 was negative. Date (Duration): 09/16/19 Time (Timing): 16:15 Timing and Duration: gradual onset Decreased ability to stand/walk:: Present: weak, off balance Usually:: Present: walks w/o assistance Prior Treament: Reports: recently seen, similar symptoms before - RUQ abd pain - saw Dr. Coyne September 07 for this Ultrasound 09/08/2019 Review of Systems - Review of Systems Constitutional: Present: weakness, decreased activity level, other - Current chemo for breast cancer. Absent: fever EYE: Absent: vision changes ENT: Present: no symptoms reported Respiratory: Present: shortness of breath. Absent: cough Cardiology: Absent: chest pain Gastrointestinal/Abdominal: Present: abdominal pain, eating less, drinking less. Absent: nausea, vomiting, diarrhea Genitourinary: Present: decreased urinary output Musculoskeletal: Present: no symptoms reported Skin: Present: dryness Neurological: Present: dizziness/light-headedness, weakness Endocrine: Present: no symptoms reported Hematologic/Lymphatic: Present: no symptoms reported Psych: Present: no symptoms reported All Other Systems: All systems neg except as marked Medical History (Last Reviewed 09/16/19 @ 16:53 by GARRETT Burger) Injury of left elbow (Resolved) Left wrist injury (Resolved) Depression (Acute) Iron deficiency (Chronic) Chronic pain (Chronic) Peptic ulcer disease (Chronic) GERD (gastroesophageal reflux disease) (Chronic) Hyperlipidemia (Chronic) Type II diabetes mellitus (Chronic) Hypertension (Chronic) Pyelonephritis (Acute) Breast cancer Onset Date: ~11/2018 right Lung mass Onset Date: ~11/2018 COPD (chronic obstructive pulmonary disease) Onset Date: Unknown Carpal tunnel syndrome Onset Date: ~05/21/17 Chronic pain Onset Date: ~05/21/17 Cubital tunnel syndrome Onset Date: ~05/21/17 DJD (degenerative joint disease) of cervical spine Onset Date: ~05/21/17 GERD (gastroesophageal reflux disease) Onset Date: Unknown Hyperlipidemia Onset Date: ~05/21/17 Hypertension Onset Date: Unknown Iron deficiency anemia Onset Date: ~05/21/17 Morbid obesity Onset Date: ~05/21/17 Obesity Class III = extreme obesity PUD (peptic ulcer disease) Onset Date: ~05/21/17 Peripheral neuropathic pain Onset Date: ~05/21/17 Peripheral neuropathy Onset Date: ~05/21/17 Primary osteoarthritis involving multiple joints Onset Date: ~05/21/17 Headache Onset Date: Unknown Surgical History: Surgical History (Last Reviewed 09/16/19 @ 16:53 by GARRETT Burger) History of lumpectomy of right breast Onset Date: 04/19/19 w/SLN biopsy for invasive ductal carcinoma H/O foot surgery Onset Date: 02/13/10 Dr Win-right 01/09/10, left 02/13/10 - Excision of plantar fibroma History of breast biopsy Onset Date: 12/07/18 ultrasound guided right breast bx-infiltrating ductal ca. History of colonoscopy Onset Date: 06/14/17 Tosin-hyperplastic polyp. Recheck 5-10 yrs. History of temporal artery biopsy Onset Date: 12/10/17 [id number] S/P tubal ligation Onset Date: ~1989 Stenosis of peripheral vascular stent Onset Date: ~2011 [facility] Family History: Family History (Last Reviewed 09/16/19 @ 16:53 by GARRETT Burger) Brother Myocardial infarction CVA (cerebral vascular accident) Cancer colon ca (dx age 52) Daughter Cancer cervical ca (dx age 30's) Lupus Hypertension Father , age 60's-[place] Hypertension Diabetes Myocardial infarction Mother , age 60's-ALS Amyotrophic lateral sclerosis (ALS) Cancer cervical Sister , 8 month old-pneumonia Seizure Sister blood clots Brother unknown health history Daughter Cancer cervical ca (dx age 26) Hypertension Diabetes Aunt Cancer 2 maternal-brain tumor Aunt Cancer paternal-breast ca (unknown age of dx) Social History: (Last Reviewed 09/16/19 @ 16:54 by GARRETT Burger) Social History: care home: No Marital status: household members: spouse number of children: 4 current occupational status: other current occupation: unemployed Highest education level completed: high school graduate Service: No Tobacco: Smoking Status: Former smoker second hand exposure: No Alcohol: alcohol intake: current alcohol intake frequency: holiday/special occasion Substance Use: substance use type: does not use Dietary Habits: caffeine: Yes Type: coffee Exercise: frequency: 3-4 times per week Personal Safety: victim of physical abuse: No victim of emotional abuse: No Physical Exam - Physical Exam General Appearance: Present: wd/wn, alert, mild distress - Mild respiratory distress Head Exam: Present: other - Bald from chemotherapy. Wearing a mask Eye Exam: Normal inspection: bilateral, PERRL: bilateral, EOMI: bilateral Ears, Nose, Throat: Present: normal pharynx, dry mucous membranes - Very dry Neck: Present: normal inspection, nontender Respiratory: Present: chest nontender, respiratory distress - Mildly labored, decreased breath sounds Cardiovascular/Chest: Present: regular rate, rhythm, no murmur, normal peripheral pulses Gastrointestinal/Abdominal: Present: normal bowel sounds, nondistended, soft, tenderness - RUQ and epigastric region Back Exam: Present: normal inspection, no CVA tenderness Extremity Exam: Present: normal inspection, non-tender, normal range of motion, no edema, other - No erythema. 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 Results and Orders: Laboratory Tests 09/16/19 09/16/19 16:24 16:24 WBC 3.0 L RBC 3.67 L Hgb 10.4 L Hct 33.9 L Plt Count 206 Sodium 136 Potassium 4.1 Chloride 102 Carbon Dioxide 22.9 L Anion Gap 15.2 H BUN 34 H Creatinine 2.52 H D Est GFR (Non-Af Amer) 21 L D Random Glucose 219 H Calcium 8.9 Total Bilirubin 0.4 AST 16 ALT 29 Alkaline Phosphatase 72 Total Protein 6.4 Albumin 2.5 L Amylase 15 L Lipase 41 L Laboratory Tests 09/16/19 16:24 Lactic Acid, Venous 3.3 H* Laboratory Tests 09/16/19 16:24 D-Dimer 0.90 H - Vital Signs Patient's Vital Signs:: I have reviewed the patient's vital signs. Vital Signs: Vital Signs 09/16/19 15:54 Temperature 38.0 C Pulse Rate 77 Respiratory Rate 22 H Blood Pressure 110/72 O2 Sat by Pulse Oximetry 93 - X-Ray X-Ray #1 X-Ray: abdomen - no acute process X-Ray #2 X-Ray: chest Interpretation: Reviewed by me X-ray Comments: Questional area of metatasis right mid lung Area of consolidation base left lung - CT/Ultrasound CT/Ultrasound Narrative: CT head - no acute pathology - Progress/Reassessment Chief Complaint: Dizziness Progress:: Improved Progress Note-Subjective: 09/16/19 18:31 Test results, etiology and treatment plan reviewed with patient and . IV NS x 2 liters, oxygen and Zosyn 4.5 GM initiated in the ER. Duo neb treatment given. Patient states she feels much better. RUQ abdominal pain improved with MS 2 mg Case reviewed with Dr. Perez who graciously agreed to accept her for admission. Plan - Plan Plan: admit to the acute floor Departure Clinical Impression: Dehydration, Immunosuppressed status, Triple negative malignant neoplasm of breast, RUQ abdominal pain Pneumonia Qualifiers: Pneumonia type: due to unspecified organism Laterality: left Lung location: lower lobe of lung Qualified Code(s): J18.9 - Pneumonia, unspecified organism Acute on chronic kidney failure Qualifiers: Acute renal failure type: unspecified Chronic kidney disease stage: stage 3 (moderate) Qualified Code(s): N17.9 - Acute kidney failure, unspecified Diabetes mellitus, type II Qualifiers: Diabetes mellitus longterm insulin use: with longterm use Diabetes mellitus complication status: with kidney complications Diabetes mellitus complication detail: with chronic kidney disease Chronic kidney disease stage: stage 3 (moderate) Qualified Code(s): E11.22 - Type 2 diabetes mellitus with diabetic chronic kidney disease - Departure Disposition: Still a patient Condition: Good
[2019-09-16] MEDS ORDERED: MORPHINE SULFATE 2 MG/ML DISP.SYRIN IV ONE (16:25)
[2019-09-16 16:31] LABS: Hematocrit 33.9 % (37.0-47.0); Hemoglobin 10.4 gm/dL (12.5-16.0); Mean Cell Volume 92.4 fl (78-100); Mean Corpuscular Hemoglobin 28.3 pg (27-31); Mean Corpuscular Hgb Conc 30.7 g/dl (32-36); Platelet Count 206 K/mm3 (150-450); Red Blood Count 3.67 M/mm3 (4.2-5.4); Red Cell Distribution Width 13.5 % (11.5-14.0)
[2019-09-16 16:36] LABS: Total Cells Counted 100
[2019-09-16 16:45] LABS: Albumin * 2.5 gm/dl (3.4-5.0); Anion Gap 15.2 mmol/L (6.8-13.8); BUN/Creatinine Ratio 13.5 (9.0-21.6); Bilirubin, Total 0.4 mg/dL (0.0-1.1); Ca. Corrected For Albumin 9.8 mg/dL (8.4-10.2); Calcium * 8.9 mg/dL (7.9-10.9); Carbon Dioxide 22.9 mmol/L (24-32.6); Potassium 4.1 mmol/L (3.4-4.6); Total Protein 6.4 gm/dL (6.2-8.2)
[2019-09-16 16:57] LABS: Atypical (Reactive) Lymph 1 % (0-2); Band 9 % (0-2.0); Lymphocyte 19 % (20-51); Monocyte 25 % (0-9); Neutrophil 46 % (42-75); Neutrophil # 1.4 K/mm3 (1.3-6.0); Platelet Estimate Normal (NORMAL); RBC Morphology Normal (NORMAL)
[2019-09-16] MEDS ORDERED: ALBUTEROL SULFATE/IPRATROPIUM 3 ML NEBU IH ONE (17:28)
[2019-09-16] MEDS ORDERED: PIPERACILLIN SODIUM/TAZOBACTAM 4.5 GM in DEXTROSE 5 % IN WATER 100 ML IV ONE ×2 (17:47)
[2019-09-16] MEDS: METHYLPREDNISOLONE SOD SUCC/PF 40 MG/ML VIAL IV SCH (19:06)
[2019-09-16] MEDS: SACCHAROMYCES BOULARDII 250 MG CAPSULE PO SCH (20:16)
[2019-09-16] MEDS: NORMAL SALINE 1,000 ML IV PRN (20:16)
[2019-09-16] MEDS ORDERED: ALBUTEROL SULFATE/IPRATROPIUM 3 ML NEBU IH SCH (21:00)
[2019-09-16] MEDS ORDERED: ALBUTEROL SULFATE 2.5 MG/0.5 ML VIAL.NEB IH PRN (22:35)
--- NOTE | 2019-09-16 23:17 | HP ---
Chief Complaint - Chief Complaint Date of Service: 09/16/19 Time of Service: 23:16 Chief Complaint: Weakness History of Present Illness: Tara is a 54 yo female with malignant neoplasm of the breast, GERD, CKD stage 3, obesity, hypoxia, DM type 2, HTN, HLD, pyelonephritis, chronic pain, hyperkalemia and COPD presents with general weakness, dizziness and right upper abdominal pain. Decreased oral intake and decreased urination. Reports SOB, weakness, dizziness and difficulty walking the past two days. 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 She is currently undergoing chemotherapy every three weeks. She has had two treatments, the next is due September 26. She has two more rounds of chemotherapy to complete and then will start radiation at [place]. Head CT in July 2019 was negative. Currently she is extremly somnolent. She had elevated lactic acid and elevated creatinine. Her blood pressure was low in the ER and she was given 3 bolus of normal saline. Medical History (Last Reviewed 09/16/19 @ 19:33 by William Bee RN) Injury of left elbow (Resolved) Left wrist injury (Resolved) Depression (Acute) Iron deficiency (Chronic) Chronic pain (Chronic) Peptic ulcer disease (Chronic) GERD (gastroesophageal reflux disease) (Chronic) Hyperlipidemia (Chronic) Type II diabetes mellitus (Chronic) Hypertension (Chronic) Pyelonephritis (Acute) Breast cancer Onset Date: ~11/2018 right Lung mass Onset Date: ~11/2018 COPD (chronic obstructive pulmonary disease) Onset Date: Unknown Carpal tunnel syndrome Onset Date: ~05/21/17 Chronic pain Onset Date: ~05/21/17 Cubital tunnel syndrome Onset Date: ~05/21/17 DJD (degenerative joint disease) of cervical spine Onset Date: ~05/21/17 GERD (gastroesophageal reflux disease) Onset Date: Unknown Hyperlipidemia Onset Date: ~05/21/17 Hypertension Onset Date: Unknown Iron deficiency anemia Onset Date: ~05/21/17 Morbid obesity Onset Date: ~05/21/17 Obesity Class III = extreme obesity PUD (peptic ulcer disease) Onset Date: ~05/21/17 Peripheral neuropathic pain Onset Date: ~05/21/17 Peripheral neuropathy Onset Date: ~05/21/17 Primary osteoarthritis involving multiple joints Onset Date: ~05/21/17 Headache Onset Date: Unknown Surgical History: Surgical History (Last Reviewed 09/16/19 @ 19:33 by William Bee RN) History of lumpectomy of right breast Onset Date: 04/19/19 w/SLN biopsy for invasive ductal carcinoma H/O foot surgery Onset Date: 02/13/10 Dr Win-right 01/09/10, left 02/13/10 - Excision of plantar fibroma History of breast biopsy Onset Date: 12/07/18 ultrasound guided right breast bx-infiltrating ductal ca. History of colonoscopy Onset Date: 06/14/17 Tosin-hyperplastic polyp. Recheck 5-10 yrs. History of temporal artery biopsy Onset Date: 12/10/17 [id number] S/P tubal ligation Onset Date: ~1989 Stenosis of peripheral vascular stent Onset Date: ~2011 [facility] Family History: Family History (Last Reviewed 09/16/19 @ 19:33 by William Bee RN) Brother Cancer colon ca (dx age 52) CVA (cerebral vascular accident) Myocardial infarction Daughter Hypertension Lupus Cancer cervical ca (dx age 30's) Father , age 60's-[place] Myocardial infarction Diabetes Hypertension Mother , age 60's-ALS Cancer cervical Amyotrophic lateral sclerosis (ALS) Sister , 8 month old-pneumonia Seizure Sister blood clots Brother unknown health history Daughter Diabetes Hypertension Cancer cervical ca (dx age 26) Aunt Cancer 2 maternal-brain tumor Aunt Cancer paternal-breast ca (unknown age of dx) Social History: (Last Reviewed 09/16/19 @ 19:33 by William Bee RN) Social History: fpc: No Marital status: household members: spouse number of children: 4 current occupational status: other current occupation: unemployed Highest education level completed: high school graduate Service: No Tobacco: Smoking Status: Former smoker second hand exposure: No Alcohol: alcohol intake: current alcohol intake frequency: holiday/special occasion Substance Use: substance use type: does not use Dietary Habits: caffeine: Yes Type: coffee Exercise: frequency: 3-4 times per week Personal Safety: victim of physical abuse: No victim of emotional abuse: No Review Of Systems (GEN) - Review of Systems Generalized/Overall Review: Present: Weakness. Absent: Chills, Fever EENTM: Present: No Symptoms Reported Respiratory: Present: Cough, Shortness of Breath Cardiac: Absent: Chest Pain, Palpitations Abdominal: Present: Abdominal Pain. Absent: Nausea, Vomiting Genitourinary: Present: No Symptoms Reported Musculoskeletal: Present: No Symptoms Reported Neurological: Present: No Symptoms Reported Immunizations: IMMUNIZATION HX Immunizations Up to Date Yes History of Influenza Vaccine Yes Hx Pneumococcal Vaccination No Allergies/Adverse Reactions: Allergies Allergy/AdvReac Type Severity Reaction Status Date / Time atorvastatin calcium Allergy Mild Hives Verified 09/16/19 19:34 [From Lipitor] clopidogrel bisulfate Allergy Mild Hives Verified 09/16/19 19:34 [From Plavix] oxycodone HCl [From Percocet] Allergy Mild Hives Verified 09/16/19 19:34 Penicillins Allergy Mild RASH, Verified 09/16/19 19:34 SWELLING Home Medications: HOME MEDICATIONS blood sugar diagnostic See Dose Instructions .ROUTE .MEDSUPPLY #20 ea 03/02/18 [Last Taken Unknown] blood-glucose meter See Dose Instructions .ROUTE .MEDSUPPLY #1 ea 03/02/18 [Last Taken Unknown] acetaminophen 500 mg tablet 1,000 mg PO Q6H PRN tab 11/04/18 [Last Taken Unknown] albuterol sulfate 2.5 mg/0.5 mL solution for nebulization 2.5 mg INHALATION Q6H PRN #30 ea 12/07/18 [Last Taken Unknown] blood-glucose meter See Dose Instructions .ROUTE .MEDSUPPLY #1 ea 03/01/19 [Last Taken Unknown] lancets See Dose Instructions .ROUTE .MEDSUPPLY #100 ea 03/01/19 [Last Taken Unknown] albuterol sulfate 90 mcg/actuation aerosol inhaler 2 inh IH Q6H PRN #8.5 g 04/14/19 [Last Taken Unknown] tiotropium bromide 18 mcg capsule with inhalation device 1 cap IH DAILY 04/27/19 [Last Taken Unknown] hydrocodone 5 mg-acetaminophen 325 mg tablet 1 tab PO Q8H PRN #30 tab 06/15/19 [Last Taken Unknown] blood sugar diagnostic See Dose Instructions .ROUTE .MEDSUPPLY #100 ea 06/20/19 [Last Taken Unknown] lisinopril 40 mg tablet 40 mg PO BID #60 tab 06/20/19 [Last Taken Unknown] ranitidine HCl 150 mg tablet 150 mg PO BID #60 tab 06/20/19 [Last Taken Unknown] sertraline 100 mg tablet 100 mg PO DAILY #90 tab 07/07/19 [Last Taken Unknown] insulin syringe-needle U-100 1 mL 31 gauge x 12/29" See Dose Instructions .ROUTE .MEDSUPPLY #100 ea 07/20/19 [Last Taken Unknown] trazodone 100 mg tablet 100 mg PO HS PRN #30 tab 07/20/19 [Last Taken Unknown] aspirin 81 mg tablet,delayed release 81 mg PO DAILY 07/28/19 [Last Taken Unknown] colestipol 1 gram tablet 1 g PO BID 07/28/19 [Last Taken Unknown] multivitamin 1 tab PO DAILY 07/28/19 [Last Taken Unknown] tiotropium bromide 18 mcg capsule with inhalation device 1 cap IH DAILY 07/28/19 [Last Taken Unknown] amlodipine 10 mg tablet See Rx Instructions .ROUTE .COMPLEX #90 tab 09/11/19 [Last Taken Unknown] gabapentin 800 mg tablet See Rx Instructions .ROUTE .COMPLEX #270 tablet 09/11/19 [Last Taken Unknown] metformin 500 mg tablet,extended release 24 hr See Rx Instructions .ROUTE .COMPLEX #360 tab 09/11/19 [Last Taken Unknown] metoprolol tartrate 100 mg tablet See Rx Instructions .ROUTE .COMPLEX #360 tab 09/11/19 [Last Taken Unknown] omeprazole 40 mg capsule,delayed release See Rx Instructions .ROUTE .COMPLEX #90 capsule 09/11/19 [Last Taken Unknown] furosemide 40 mg tablet 40 mg PO DAILY #30 tab 09/13/19 [Last Taken Unknown] Insulin NPH Hum/Reg Insulin Hm [Humulin 70/30 U-100 Insulin] 35 unit SUBCUT QPM 09/16/19 [Last Taken Unknown] Insulin NPH Hum/Reg Insulin Hm [Humulin 70/30 U-100 Insulin] 75 unit SUBCUT QAM 09/16/19 [Last Taken Unknown] Exam - Exam Vital Signs: Vital Signs - Last Taken Temp 36.8 C 09/16/19 19:34 Pulse 67 09/16/19 21:28 Resp 14 09/16/19 21:28 BP 96/58 09/16/19 22:20 Pulse Ox 90 L 09/16/19 22:09 Constitutional: Present: Somnolent - awakens but falls to sleep easily Eye Exam: bilateral eye: normal inspection Respiratory: Present: lungs clear, no respiratory distress Cardiovascular/Chest: Present: regular rate, rhythm, no murmur Abdomen: Present: Normal bowel sounds, soft, nondistended Extremity: Present: normal inspection Skin Exam: Present: normal color Diagnostic Studies: Abnormal Lab Results 09/16/19 09/16/19 09/16/19 Range/Units 16:24 16:24 16:24 WBC 3.0 L (4.0-10.5) K/mm3 RBC 3.67 L (4.2-5.4) M/mm3 Hgb 10.4 L (12.5-16.0) gm/dL Hct 33.9 L (37.0-47.0) % MCHC 30.7 L (32-36) g/dl Band Neuts % (Manual) 9 H (0-2.0) % Lymphocytes % (Manual) 19 L (20-51) % Monocytes % (Manual) 25 H (0-9) % Lymphocytes # (Manual) 0.6 L (1.5-3.5) k/mm3 Nucleated RBCs 3.0 H (0-1) % D-Dimer (0.19-0.49) ug/mL Carbon Dioxide 22.9 L (24-32.6) mmol/L Anion Gap 15.2 H (6.8-13.8) mmol/L BUN 34 H (3-23) mg/dL Creatinine 2.52 H D (0.4-1.4) mg/dL Est GFR (Non-Af Amer) 21 L D (60-130) mL/min Random Glucose 219 H (70-110) mg/dL Lactic Acid, Venous 3.3 H* (0.4-2.0) mmol/L Albumin 2.5 L (3.4-5.0) gm/dl Amylase 15 L (25-115) U/L Lipase 41 L (73-393) U/L 09/16/19 Range/Units 16:24 WBC (4.0-10.5) K/mm3 RBC (4.2-5.4) M/mm3 Hgb (12.5-16.0) gm/dL Hct (37.0-47.0) % MCHC (32-36) g/dl Band Neuts % (Manual) (0-2.0) % Lymphocytes % (Manual) (20-51) % Monocytes % (Manual) (0-9) % Lymphocytes # (Manual) (1.5-3.5) k/mm3 Nucleated RBCs (0-1) % D-Dimer 0.90 H (0.19-0.49) ug/mL Carbon Dioxide (24-32.6) mmol/L Anion Gap (6.8-13.8) mmol/L BUN (3-23) mg/dL Creatinine (0.4-1.4) mg/dL Est GFR (Non-Af Amer) (60-130) mL/min Random Glucose (70-110) mg/dL Lactic Acid, Venous (0.4-2.0) mmol/L Albumin (3.4-5.0) gm/dl Amylase (25-115) U/L Lipase (73-393) U/L Laboratory Results WBC 3.0 K/mm3 (4.0-10.5) L 09/16/19 16:24 RBC 3.67 M/mm3 (4.2-5.4) L 09/16/19 16:24 Hgb 10.4 gm/dL (12.5-16.0) L 09/16/19 16:24 Hct 33.9 % (37.0-47.0) L 09/16/19 16:24 MCV 92.4 fl (78-100) 09/16/19 16:24 MCH 28.3 pg (27-31) 09/16/19 16:24 MCHC 30.7 g/dl (32-36) L 09/16/19 16:24 RDW 13.5 % (11.5-14.0) 09/16/19 16:24 Plt Count 206 K/mm3 (150-450) 09/16/19 16:24 MPV 10.0 fl (8-12.5) 09/16/19 16:24 Neutrophils % (Manual) 46 % (42-75) 09/16/19 16:24 Band Neuts % (Manual) 9 % (0-2.0) H 09/16/19 16:24 Lymphocytes % (Manual) 19 % (20-51) L 09/16/19 16:24 Monocytes % (Manual) 25 % (0-9) H 09/16/19 16:24 Neutrophils # (Manual) 1.4 K/mm3 (1.3-6.0) 02/01/20 16:24 Lymphocytes # (Manual) 0.6 k/mm3 (1.5-3.5) L 09/16/19 16:24 Monocytes # (Manual) 0.8 k/mm3 (0.0-1.0) 09/16/19 16:24 Nucleated RBCs 3.0 % (0-1) H 09/16/19 16:24 Atypic/Reactive Lymphs 1 % (0-2) 09/16/19 16:24 Platelet Estimate Normal (NORMAL) 09/16/19 16:24 RBC Morphology Normal (NORMAL) 09/16/19 16:24 D-Dimer 0.90 ug/mL (0.19-0.49) H 09/16/19 16:24 Sodium 136 mmol/L (132-142) 09/16/19 16:24 Plasma Sodium 138 mmol/L (130-142) 09/16/19 16:24 Potassium 4.1 mmol/L (3.4-4.6) 09/16/19 16:24 Chloride 102 mmol/L (97-106) 09/16/19 16:24 Carbon Dioxide 22.9 mmol/L (24-32.6) L 09/16/19 16:24 Anion Gap 15.2 mmol/L (6.8-13.8) H 09/16/19 16:24 BUN 34 mg/dL (3-23) H 09/16/19 16:24 Creatinine 2.52 mg/dL (0.4-1.4) H D 09/16/19 16:24 Est GFR (Non-Af Amer) 21 mL/min (60-130) L D 09/16/19 16:24 BUN/Creatinine Ratio 13.5 (9.0-21.6) 09/16/19 16:24 Random Glucose 219 mg/dL (70-110) H 09/16/19 16:24 Lactic Acid, Venous 1.1 mmol/L (0.4-2.0) 09/16/19 22:00 Calcium 8.9 mg/dL (7.9-10.9) 09/16/19 16:24 Calcium Adj for Albumin 9.8 mg/dL (8.4-10.2) 09/16/19 16:24 Total Bilirubin 0.4 mg/dL (0.0-1.1) 09/16/19 16:24 AST 16 U/L (0-48) 09/16/19 16:24 ALT 29 U/L (19-67) 09/16/19 16:24 Alkaline Phosphatase 72 U/L (50-170) 09/16/19 16:24 Total Protein 6.4 gm/dL (6.2-8.2) 09/16/19 16:24 Albumin 2.5 gm/dl (3.4-5.0) L 09/16/19 16:24 Amylase 15 U/L (25-115) L 09/16/19 16:24 Lipase 41 U/L (73-393) L 09/16/19 16:24 Assessment/Plan - Narrative Narrative: Tara is a 54 yo female with acute on chronic kidney failure with elevated creatinine of 2.5, poor oral intake, and decreased urine output; right middle lobe pneumonia on chest xray; and possible sepsis with encephalopathy (somnolence) and shock. She will be treated with broad spectrum antibiotics of zosyn and aggressive fluids with normal saline boluses. She has been reassessed and has continued hypotension, will need additional bolus and continued fluids with blood pressure monitoring. Lactic acid is elevated and this will be monitored. Chest xray shows pneumonia in right middle lobe this will be covered with zosyn which is also covering sepsis. - Assessment/Plan (1) Sepsis with encephalopathy and septic shock Problem: Suspected Qualifiers: Sepsis type: sepsis due to unspecified organism Qualified Code(s): A41.9 - Sepsis, unspecified organism; R65.21 - Severe sepsis with septic shock; G93.40 - Encephalopathy, unspecified (2) Severe dehydration Problem: Acute (3) Acute renal failure superimposed on stage 3 chronic kidney disease Problem: Acute (4) Type II diabetes mellitus Problem: Chronic Qualifiers: Diabetes mellitus chcf insulin use: with tank terminal gauger use Diabetes mellitus complication status: with kidney complications Diabetes mellitus complication detail: with chronic kidney disease Chronic kidney disease stage: stage 3 (moderate) Qualified Code(s): E11.22 - Type 2 diabetes mellitus with diabetic chronic kidney disease; N18.3 - Chronic kidney disease, stage 3 (moderate); Z79.4 - exterminator helper termite (current) use of insulin (5) Pneumonia Problem: Acute Qualifiers: Pneumonia type: due to unspecified organism Laterality: right Lung location: middle lobe of lung Qualified Code(s): J18.9 - Pneumonia, unspecified organism
[2019-09-17] MEDS: METHYLPREDNISOLONE SOD SUCC/PF 40 MG/ML VIAL IV SCH ×2 (00:11→06:59)
[2019-09-17] MEDS: NORMAL SALINE 1,000 ML IV PRN ×3 (02:46→16:15)
[2019-09-17] MEDS: PIPERACILLIN SODIUM/TAZOBACTAM 3.375 GM in DEXTROSE 5 % IN WATER 100 ML IV SCH ×6 (02:46→18:42)
[2019-09-17] MEDS: ALBUTEROL SULFATE/IPRATROPIUM 3 ML NEBU IH SCH ×4 (06:13→20:28)
[2019-09-17 06:41] LABS: Urine Bilirubin Negative (NEGATIVE); Urine Blood 50 /ul (NEGATIVE); Urine Ketone Negative (NEGATIVE); Urine Nitrite Negative (NEGATIVE); Urine Protein 15 mg/dL (NEGATIVE); Urine Specific Gravity 1.015 SP.GR. (1.005-1.010); Urine Urobilinogen Normal (NORMAL)
[2019-09-17 06:48] LABS: Urine Appearance Clear (CLEAR); Urine Bacteria TRACE; Urine Color Yellow; Urine RBC 0-5 /hpf (0-5); Urine WBC None Seen /hpf (0-5)
[2019-09-17] MEDS: METHYLPREDNISOLONE SOD SUCC/PF 125 MG/2 ML VIAL IV SCH ×3 (07:05→18:43)
[2019-09-17] MEDS: PANTOPRAZOLE SODIUM 40 MG TABLET.EC PO SCH (07:08)
[2019-09-17 09:33] LABS: Hematocrit 32.8 % (37.0-47.0); Mean Cell Volume 93.2 fl (78-100); Mean Corpuscular Hemoglobin 28.4 pg (27-31); Mean Corpuscular Hgb Conc 30.5 g/dl (32-36); Mean Platelet Volume 10.6 fl (8-12.5); Platelet Count 198 K/mm3 (150-450); Red Blood Count 3.52 M/mm3 (4.2-5.4); Red Cell Distribution Width 13.5 % (11.5-14.0); White Blood Count 9.2 K/mm3 (4.0-10.5)
[2019-09-17 09:41] LABS: Total Cells Counted 100
[2019-09-17] MEDS: ASPIRIN 81 MG TABLET.DR PO SCH (09:44)
[2019-09-17] MEDS: MULTIVITAMINS 1 CAP CAPSULE PO SCH (09:45)
[2019-09-17] MEDS: SACCHAROMYCES BOULARDII 250 MG CAPSULE PO SCH ×2 (09:45→20:08)
[2019-09-17] MEDS: COLESTIPOL HCL 1 G TABLET PO SCH ×2 (09:45→20:09)
[2019-09-17] MEDS: GABAPENTIN 400 MG CAPSULE PO SCH ×3 (09:50→18:40)
[2019-09-17] MEDS: SERTRALINE HCL 100 MG TABLET PO SCH (09:50)
[2019-09-17] MEDS: amLODIPine BESYLATE 10 MG TABLET PO SCH (09:51)
[2019-09-17 09:59] LABS: Albumin * 2.1 gm/dl (3.4-5.0); Anion Gap 17.7 mmol/L (6.8-13.8); BUN/Creatinine Ratio 21.5 (9.0-21.6); Bilirubin, Total 0.3 mg/dL (0.0-1.1); Ca. Corrected For Albumin 9.1 mg/dL (8.4-10.2); Calcium * 7.9 mg/dL (7.9-10.9); Carbon Dioxide 17.2 mmol/L (24-32.6); Potassium 4.9 mmol/L (3.4-4.6); Total Protein 6.1 gm/dL (6.2-8.2)
[2019-09-17 10:30] LABS: Band 22 % (0-2.0); Lymphocyte 12 % (20-51); Monocyte 22 % (0-9); Neutrophil 44 % (42-75); Platelet Estimate Normal (NORMAL); RBC Morphology Normal (NORMAL)
[2019-09-17] MEDS: METOPROLOL TARTRATE 100 MG TABLET PO SCH ×2 (11:06→20:09)
[2019-09-17] MEDS: HYDROcodone/ACETAMINOPHEN 1 EACH TABLET PO PRN ×2 (12:06→20:08)
[2019-09-17] MEDS ORDERED: HUM INSULIN NPH/REG INSULIN HM 100 UNIT/ML VIAL SC ONE (12:24)
[2019-09-17] MEDS: MENTHOL 25 LOZENGE BAG MM PRN (12:26)
[2019-09-17] MEDS: HUM INSULIN NPH/REG INSULIN HM 100 UNIT/ML VIAL SC SCH (17:20)
[2019-09-17] MEDS: INSULIN LISPRO 100 UNITS/ML VIAL SC SCH (17:21)
--- NOTE | 2019-09-17 17:31 | PN ---
Subjective - Date and Time Seen Date: 09/17/19 Time: 10:00 Subjective Narrative: Tara feels much better today. She is feeling alert and is hungry. Creatinine is improved to 1.6. She denies chest pain and shortness of breath is improving. Objective - Vitals Vitals: Last Vital Signs Temp 36.6 C 09/17/19 14:31 Pulse 71 09/17/19 15:00 Resp 20 09/17/19 14:35 BP 96/49 09/17/19 14:31 Pulse Ox 93 09/17/19 14:31 - Abnormal Lab Findings Abnormal Lab Findings: Abnormal Lab Results 09/17/19 09/17/19 09/17/19 Range/Units 06:32 09:26 09:30 RBC 3.52 L (4.2-5.4) M/mm3 Hgb 10.0 L (12.5-16.0) gm/dL Hct 32.8 L (37.0-47.0) % MCHC 30.5 L (32-36) g/dl Band Neuts % (Manual) 22 H (0-2.0) % Lymphocytes % (Manual) 12 L (20-51) % Monocytes % (Manual) 22 H (0-9) % Lymphocytes # (Manual) 1.1 L (1.5-3.5) k/mm3 Monocytes # (Manual) 2.0 H (0.0-1.0) k/mm3 Potassium 4.9 H (3.4-4.6) mmol/L Carbon Dioxide 17.2 L (24-32.6) mmol/L Anion Gap 17.7 H (6.8-13.8) mmol/L BUN 35 H (3-23) mg/dL Creatinine 1.63 H D (0.4-1.4) mg/dL Est GFR (Non-Af Amer) 35 L D (60-130) mL/min Random Glucose 326 H D (70-110) mg/dL Total Protein 6.1 L (6.2-8.2) gm/dL Albumin 2.1 L (3.4-5.0) gm/dl Urine Protein 15 H (NEGATIVE) mg/dL Urine Blood 50 H (NEGATIVE) /ul - Exam Constitutional: Present: Alert, Oriented x3, Cooperative ENT Exam: Present: hearing grossly normal Respiratory: Present: decreased breath sounds Cardiovascular/Chest: Present: regular rate, rhythm, no murmur Abdomen: Present: Normal bowel sounds, soft, nontender, nondistended Skin Exam: Present: normal color, warm/dry, no cyanosis Assessment/Plan Plan Narrative: Tara has significantly improved with hydration. I believe she was more likely severely dehydrated, potentially from sick from pneumonia and less likely septic. Will continue to treat with zosyn. Her creatinine has improved significantly but still has room to improve. Blood pressures have normalized. I will decrease her fluids from 200ml/hr to 100ml/hr so not to overload. - Problems/Diagnosis (1) Severe dehydration Problem: Acute (2) Sepsis with encephalopathy and septic shock Problem: Suspected Qualifiers: Sepsis type: sepsis due to unspecified organism Qualified Code(s): A41.9 - Sepsis, unspecified organism; R65.21 - Severe sepsis with septic shock; G93.40 - Encephalopathy, unspecified (3) Acute renal failure superimposed on stage 3 chronic kidney disease Problem: Acute (4) Type II diabetes mellitus Problem: Chronic Qualifiers: Diabetes mellitus residential insulin use: with residential use Diabetes mellitus complication status: with kidney complications Diabetes mellitus complication detail: with chronic kidney disease Chronic kidney disease stage: stage 3 (moderate) Qualified Code(s): E11.22 - Type 2 diabetes mellitus with diabetic chronic kidney disease; N18.3 - Chronic kidney disease, stage 3 (moderate); Z79.4 - ocean transportation intermediary (current) use of insulin (5) Pneumonia Problem: Acute Qualifiers: Pneumonia type: due to unspecified organism Laterality: right Lung location: middle lobe of lung Qualified Code(s): J18.9 - Pneumonia, unspecified organism
[2019-09-17] MEDS: traZODone HCL 50 MG TABLET PO PRN (21:29)
[2019-09-18] MEDS: METHYLPREDNISOLONE SOD SUCC/PF 125 MG/2 ML VIAL IV SCH ×3 (01:29→12:51)
[2019-09-18] MEDS: PIPERACILLIN SODIUM/TAZOBACTAM 3.375 GM in DEXTROSE 5 % IN WATER 100 ML IV SCH ×4 (02:16→11:43)
[2019-09-18] MEDS: NORMAL SALINE 1,000 ML IV PRN (02:16)
[2019-09-18] MEDS: ALBUTEROL SULFATE/IPRATROPIUM 3 ML NEBU IH SCH ×5 (06:00→18:05)
[2019-09-18 06:45] LABS: Hematocrit 33.9 % (37.0-47.0); Hemoglobin 10.6 gm/dL (12.5-16.0); Mean Cell Volume 91.9 fl (78-100); Mean Corpuscular Hemoglobin 28.7 pg (27-31); Mean Corpuscular Hgb Conc 31.3 g/dl (32-36); Mean Platelet Volume 11.1 fl (8-12.5); Platelet Count 254 K/mm3 (150-450); Red Blood Count 3.69 M/mm3 (4.2-5.4); Red Cell Distribution Width 13.9 % (11.5-14.0); White Blood Count 21.3 K/mm3 (4.0-10.5)
[2019-09-18 06:46] LABS: Albumin * 2.1 gm/dl (3.4-5.0); BUN/Creatinine Ratio 29.3 (9.0-21.6); Bilirubin, Total 0.2 mg/dL (0.0-1.1); Ca. Corrected For Albumin 9.8 mg/dL (8.4-10.2); Calcium * 8.6 mg/dL (7.9-10.9); Carbon Dioxide 22.1 mmol/L (24-32.6); Potassium 5.1 mmol/L (3.4-4.6); Total Protein 6.4 gm/dL (6.2-8.2)
[2019-09-18 06:49] LABS: Total Cells Counted 100
[2019-09-18 07:05] LABS: Band 6 % (0-2.0); Lymphocyte 5 % (20-51); Monocyte 11 % (0-9); Neutrophil 78 % (42-75); Neutrophil # 16.6 K/mm3 (1.3-6.0); Platelet Estimate Normal (NORMAL); RBC Morphology Normal (NORMAL)
[2019-09-18] MEDS: HYDROcodone/ACETAMINOPHEN 1 EACH TABLET PO PRN ×2 (07:24→17:03)
[2019-09-18] MEDS: PANTOPRAZOLE SODIUM 40 MG TABLET.EC PO SCH (07:25)
[2019-09-18] MEDS: HUM INSULIN NPH/REG INSULIN HM 100 UNIT/ML VIAL SC SCH ×2 (08:10→16:58)
[2019-09-18] MEDS: INSULIN LISPRO 100 UNITS/ML VIAL SC SCH ×3 (08:11→16:58)
[2019-09-18] MEDS: SACCHAROMYCES BOULARDII 250 MG CAPSULE PO SCH ×2 (08:14→21:12)
[2019-09-18] MEDS: ASPIRIN 81 MG TABLET.DR PO SCH (08:14)
[2019-09-18] MEDS: amLODIPine BESYLATE 10 MG TABLET PO SCH (08:14)
[2019-09-18] MEDS: COLESTIPOL HCL 1 G TABLET PO SCH ×2 (08:14→21:12)
[2019-09-18] MEDS: METOPROLOL TARTRATE 100 MG TABLET PO SCH ×2 (08:15→21:12)
[2019-09-18] MEDS: MULTIVITAMINS 1 CAP CAPSULE PO SCH (08:15)
[2019-09-18] MEDS: GABAPENTIN 400 MG CAPSULE PO SCH ×3 (08:15→16:58)
[2019-09-18] MEDS: SERTRALINE HCL 100 MG TABLET PO SCH (08:15)
--- NOTE | 2019-09-18 10:04 | PN ---
Subjective - Date and Time Seen Date: 09/18/19 Time: 08:45 Subjective Narrative: Overall she does feel better today but continues to have right-sided flank pain, and cough. She is tolerating her diet and moving her bowels. Objective - Review of Systems Generalized/Overall Review: Denies: Chills, Fever Respiratory: Reports: Cough. Denies: Shortness of Breath Cardiac: Denies: Chest Pain Abdominal: Denies: Abdominal Pain Misc: All systems neg except as marked - Vitals Vitals: Last Vital Signs Temp 35.9 C L 09/18/19 06:28 Pulse 81 09/18/19 08:15 Resp 16 09/18/19 06:28 BP 140/71 H 09/18/19 08:15 Pulse Ox 91 L 09/18/19 06:28 - Abnormal Lab Findings Abnormal Lab Findings: Abnormal Lab Results 09/17/19 09/17/19 09/18/19 Range/Units 09:26 09:30 06:08 WBC 21.3 H D (4.0-10.5) K/mm3 RBC 3.69 L (4.2-5.4) M/mm3 Hgb 10.6 L (12.5-16.0) gm/dL Hct 33.9 L (37.0-47.0) % MCHC 31.3 L (32-36) g/dl Neutrophils % (Manual) 78 H (42-75) % Band Neuts % (Manual) 22 H 6 H (0-2.0) % Lymphocytes % (Manual) 12 L 5 L (20-51) % Monocytes % (Manual) 22 H 11 H (0-9) % Neutrophils # (Manual) 16.6 H (1.3-6.0) K/mm3 Lymphocytes # (Manual) 1.1 L 1.1 L (1.5-3.5) k/mm3 Monocytes # (Manual) 2.0 H 2.3 H (0.0-1.0) k/mm3 Sodium (132-142) mmol/L Potassium 4.9 H (3.4-4.6) mmol/L Carbon Dioxide 17.2 L (24-32.6) mmol/L Anion Gap 17.7 H (6.8-13.8) mmol/L BUN 35 H (3-23) mg/dL Creatinine 1.63 H D (0.4-1.4) mg/dL Est GFR (Non-Af Amer) 35 L D (60-130) mL/min BUN/Creatinine Ratio (9.0-21.6) Random Glucose 326 H D (70-110) mg/dL Total Protein 6.1 L (6.2-8.2) gm/dL Albumin 2.1 L (3.4-5.0) gm/dl 09/18/19 Range/Units 06:08 WBC (4.0-10.5) K/mm3 RBC (4.2-5.4) M/mm3 Hgb (12.5-16.0) gm/dL Hct (37.0-47.0) % MCHC (32-36) g/dl Neutrophils % (Manual) (42-75) % Band Neuts % (Manual) (0-2.0) % Lymphocytes % (Manual) (20-51) % Monocytes % (Manual) (0-9) % Neutrophils # (Manual) (1.3-6.0) K/mm3 Lymphocytes # (Manual) (1.5-3.5) k/mm3 Monocytes # (Manual) (0.0-1.0) k/mm3 Sodium 131 L (132-142) mmol/L Potassium 5.1 H (3.4-4.6) mmol/L Carbon Dioxide 22.1 L (24-32.6) mmol/L Anion Gap (6.8-13.8) mmol/L BUN 41 H (3-23) mg/dL Creatinine (0.4-1.4) mg/dL Est GFR (Non-Af Amer) 41 L (60-130) mL/min BUN/Creatinine Ratio 29.3 H (9.0-21.6) Random Glucose 324 H (70-110) mg/dL Total Protein (6.2-8.2) gm/dL Albumin 2.1 L (3.4-5.0) gm/dl - Exam Constitutional: Present: Alert, Cooperative, Well developed, Well nourished, No distress ENT Exam: Present: hearing grossly normal Neck: Present: non-tender, supple. Absent: lymphadenopathy (R), lymphadenopathy (L) Respiratory: Present: no accessory muscle use, crackles - Bilateral bases. Absent: wheezing Cardiovascular/Chest: Present: normal peripheral pulses, regular rate, rhythm, no edema, no murmur Abdomen: Present: Normal bowel sounds, soft, nontender Extremity: Present: lower extremity edema - 1+ pitting bilateral lower extremities Skin Exam: Present: normal color, warm/dry Neurologic: Present: alert, normal mood/affect Appearance: Present: appropriate appearance, appropriate insight Eye contact: Present: cooperative Thoughts: Present: normal thought pattern, normal mood /affect Assessment/Plan Plan Narrative: 84-year-old female with a history of right breast cancer on chemotherapy, hypertension, hyperlipidemia, GERD, COPD, diabetes mellitus type 2, obesity, peripheral neuropathy, iron deficiency anemia, depression, degenerative joint disease presents with complaints of weakness. She was found to have a right lower lobe pneumonia and started on, acute on chronic kidney disease, and dehydration. She was admitted and started on Zosyn, IV fluids with improvement of her symptoms. Today she feels better but is still weak with some right flank pain. She does have leukocytosis secondary to being on methylprednisolone. She is scheduled to have another session of chemotherapy on September 26, 2019. I spoke with the patient's oncologist Dr. Rod Anthony and he is in agreement with continuing treatment for the pneumonia. Her oncologist is also going to continue with the scheduled chemotherapy on September 26, 2019 as long as she has recovered from the pneumonia. He wants to give her medication to stimulate her immune system prior to that next dose of chemotherapy.. Plan #1 stop Zosyn and transition to Levaquin 750 mg every 24 hours, day 2 #2 Stop IV fluid hydration because she is tolerating a diet #3 continue with home medication for comorbidities #4 CBC and CMP in the morning - Problems/Diagnosis (1) Acute renal failure superimposed on stage 3 chronic kidney disease Problem: Acute (2) Dehydration Problem: Acute (3) Pneumonia Problem: Acute Qualifiers: Pneumonia type: due to unspecified organism Laterality: right Lung location: middle lobe of lung Qualified Code(s): J18.9 - Pneumonia, unspecified organism (4) Triple negative malignant neoplasm of breast Problem: Chronic (5) Type II diabetes mellitus Problem: Chronic Qualifiers: Diabetes mellitus fci insulin use: with fci use Diabetes mellitus complication status: with kidney complications Diabetes mellitus complication detail: with chronic kidney disease Chronic kidney disease stage: stage 3 (moderate) Qualified Code(s): E11.22 - Type 2 diabetes mellitus with diabetic chronic kidney disease; N18.3 - Chronic kidney disease, stage 3 (moderate); Z79.4 - rat exterminator (current) use of insulin (6) Diabetes mellitus, type II Problem: Chronic Qualifiers: Diabetes mellitus meterman insulin use: with fci use (7) GERD (gastroesophageal reflux disease) Problem: Chronic Qualifiers: Esophagitis presence: esophagitis presence not specified Qualified Code(s): K21.9 - Gastro-esophageal reflux disease without esophagitis (8) Hyperlipidemia Problem: Chronic Qualifiers: Hyperlipidemia type: unspecified Qualified Code(s): E78.5 - Hyperlipidemia, unspecified (9) Hypertension Problem: Chronic Qualifiers: Hypertension type: essential hypertension Qualified Code(s): I10 - Essential (primary) hypertension (10) Obesity Problem: Chronic Qualifiers: Obesity type: due to excess calories Obesity classification: adult class 2 (BMI 35 - 39.9) Serious obesity comorbidity presence: with serious comorbidity Body mass index: BMI 39.0-39.9 Qualified Code(s): E66.01 - Morbid (severe) obesity due to excess calories; Z68.39 - Body mass index (BMI) 39.0-39.9, adult
[2019-09-18] MEDS: POLYVINYL ALCOHOL 150 DROP BTL EACHEYE PRN (10:26)
[2019-09-18] MEDS: ACETAMINOPHEN 500 MG TABLET PO PRN ×2 (11:45→19:06)
[2019-09-18] MEDS ORDERED: FUROSEMIDE 40 MG TABLET PO ONE (12:21)
[2019-09-18] MEDS ORDERED: FUROSEMIDE 40 MG TABLET PO SCH (12:30)
[2019-09-18] MEDS ORDERED: LEVOFLOXACIN IN DEXTROSE 5 % 750 MG/150 ML BAG IV SCH (13:00)
[2019-09-18] MEDS: MENTHOL 25 LOZENGE BAG MM PRN (21:11)
[2019-09-19] MEDS: HYDROcodone/ACETAMINOPHEN 1 EACH TABLET PO PRN ×2 (04:15→14:35)
[2019-09-19] MEDS: ALBUTEROL SULFATE/IPRATROPIUM 3 ML NEBU IH SCH ×4 (06:31→18:42)
[2019-09-19 06:38] LABS: Hematocrit 32.3 % (37.0-47.0); Hemoglobin 10.4 gm/dL (12.5-16.0); Mean Cell Volume 89.5 fl (78-100); Mean Corpuscular Hemoglobin 28.8 pg (27-31); Mean Corpuscular Hgb Conc 32.2 g/dl (32-36); Platelet Count 276 K/mm3 (150-450); Red Blood Count 3.61 M/mm3 (4.2-5.4); Red Cell Distribution Width 14.1 % (11.5-14.0); White Blood Count 30.4 K/mm3 (4.0-10.5)
[2019-09-19 06:44] LABS: Albumin * 2.2 gm/dl (3.4-5.0); Anion Gap 14.8 mmol/L (6.8-13.8); BUN/Creatinine Ratio 31.3 (9.0-21.6); Bilirubin, Total 0.2 mg/dL (0.0-1.1); Ca. Corrected For Albumin 10.3 mg/dL (8.4-10.2); Calcium * 9.2 mg/dL (7.9-10.9); Carbon Dioxide 22.4 mmol/L (24-32.6); Potassium 5.2 mmol/L (3.4-4.6); Total Cells Counted 100; Total Protein 6.2 gm/dL (6.2-8.2)
[2019-09-19 06:53] LABS: Anisocytosis Trace; Band 2 % (0-2.0); Lymphocyte 5 % (20-51); Monocyte 8 % (0-9); Neutrophil 85 % (42-75); Neutrophil # 25.8 K/mm3 (1.3-6.0); Platelet Estimate Normal (NORMAL); Poikilocytosis Trace
[2019-09-19] MEDS: INSULIN LISPRO 100 UNITS/ML VIAL SC SCH ×5 (07:04→17:05)
[2019-09-19] MEDS: HUM INSULIN NPH/REG INSULIN HM 100 UNIT/ML VIAL SC SCH ×2 (07:06→16:59)
[2019-09-19] MEDS: PANTOPRAZOLE SODIUM 40 MG TABLET.EC PO SCH (07:06)
[2019-09-19] MEDS ORDERED: INSULIN LISPRO 100 UNITS/ML VIAL SC SCH (08:16)
[2019-09-19] MEDS ORDERED: METHYLPREDNISOLONE SOD SUCC/PF 40 MG/ML VIAL IV SCH (09:00)
[2019-09-19] MEDS ORDERED: predniSONE 20 MG TABLET PO ONE (09:00)
[2019-09-19] MEDS ORDERED: METOPROLOL TARTRATE 100 MG TABLET PO SCH (09:15)
[2019-09-19] MEDS: ASPIRIN 81 MG TABLET.DR PO SCH (09:40)
[2019-09-19] MEDS: SACCHAROMYCES BOULARDII 250 MG CAPSULE PO SCH ×2 (09:40→21:07)
[2019-09-19] MEDS: GABAPENTIN 400 MG CAPSULE PO SCH ×3 (09:40→16:55)
[2019-09-19] MEDS: SERTRALINE HCL 100 MG TABLET PO SCH (09:41)
[2019-09-19] MEDS: amLODIPine BESYLATE 10 MG TABLET PO SCH (09:41)
[2019-09-19] MEDS: COLESTIPOL HCL 1 G TABLET PO SCH ×2 (09:41→21:06)
[2019-09-19] MEDS: MULTIVITAMINS 1 CAP CAPSULE PO SCH (09:41)
[2019-09-19] MEDS: METOPROLOL TARTRATE 100 MG TABLET PO SCH ×2 (09:41→21:07)
[2019-09-19] MEDS: LISINOPRIL 40 MG TABLET PO SCH ×2 (09:42→21:07)
[2019-09-19] MEDS: MENTHOL 25 LOZENGE BAG MM PRN (09:42)
[2019-09-19] MEDS: POLYVINYL ALCOHOL 150 DROP BTL EACHEYE PRN (09:45)
--- NOTE | 2019-09-19 10:18 | PN ---
Subjective - Date and Time Seen Date: 09/19/19 Time: 08:25 Subjective Narrative: Overall she feels better but does note shortness of breath with exertion. She denies chest pain or abdominal pain and is eating well. Objective - Review of Systems Generalized/Overall Review: Denies: Chills, Fever Respiratory: Reports: Shortness of Breath Cardiac: Reports: Chest Pain Abdominal: Denies: Abdominal Pain Misc: All systems neg except as marked - Vitals Vitals: Last Vital Signs Temp 36.4 C 09/19/19 06:42 Pulse 64 09/19/19 09:42 Resp 16 09/19/19 06:42 BP 176/65 H 09/19/19 09:42 Pulse Ox 96 09/19/19 09:02 - Abnormal Lab Findings Abnormal Lab Findings: Abnormal Lab Results 09/19/19 09/19/19 Range/Units 06:05 06:05 WBC 30.4 H D (4.0-10.5) K/mm3 RBC 3.61 L (4.2-5.4) M/mm3 Hgb 10.4 L (12.5-16.0) gm/dL Hct 32.3 L (37.0-47.0) % RDW 14.1 H (11.5-14.0) % Neutrophils % (Manual) 85 H (42-75) % Lymphocytes % (Manual) 5 L (20-51) % Neutrophils # (Manual) 25.8 H (1.3-6.0) K/mm3 Monocytes # (Manual) 2.4 H (0.0-1.0) k/mm3 Potassium 5.2 H (3.4-4.6) mmol/L Carbon Dioxide 22.4 L (24-32.6) mmol/L Anion Gap 14.8 H (6.8-13.8) mmol/L BUN 42 H (3-23) mg/dL Est GFR (Non-Af Amer) 43 L (60-130) mL/min BUN/Creatinine Ratio 31.3 H (9.0-21.6) Random Glucose 337 H (70-110) mg/dL Calcium Adj for Albumin 10.3 H (8.4-10.2) mg/dL Albumin 2.2 L (3.4-5.0) gm/dl - Exam Constitutional: Present: Alert, Cooperative, Well developed, Well nourished, No distress, Middle aged ENT Exam: Present: normal ENT inspection, hearing grossly normal Neck: Present: non-tender, supple. Absent: lymphadenopathy (R), lymphadenopathy (L) Respiratory: Present: no respiratory distress, no accessory muscle use, crackles - Mild crackles in bilateral lung bases but otherwise clear to auscultation and the rest of the lung perez.. Absent: rhonchi, wheezing Cardiovascular/Chest: Present: normal peripheral pulses, regular rate, rhythm, no edema, no murmur Abdomen: Present: Normal bowel sounds, soft, nontender Extremity: Present: no pedal edema Skin Exam: Present: normal color, warm/dry Neurologic: Present: alert, normal mood/affect Appearance: Present: appropriate appearance, appropriate insight Eye contact: Present: cooperative Thoughts: Present: normal thought pattern, normal mood /affect Assessment/Plan Plan Narrative: 84-year-old female with a history of right breast cancer on chemotherapy, hypertension, hyperlipidemia, GERD, COPD, diabetes mellitus type 2, obesity, peripheral neuropathy, iron deficiency anemia, depression, degenerative joint disease presents with complaints of weakness. She was found to have a right lower lobe pneumonia and started on, acute on chronic kidney disease, and dehydration. She was admitted and started on Zosyn, IV fluids with improvement of her symptoms. Today she feels better but is still weak with some right flank pain. She does have leukocytosis secondary to being on methylprednisolone. She is scheduled to have another session of chemotherapy on September 26, 2019. I spoke with the patient's oncologist Dr. Rod Anthony and he is in agreement with continuing treatment for the pneumonia. Her oncologist is also going to continue with the scheduled chemotherapy on September 26, 2019 as long as she has recovered from the pneumonia. He wants to give her medication to stimulate her immune system prior to that next dose of chemotherapy. Overall she is feeling better today. She does still get some shortness of breath with exertion. Her blood sugars have been elevated likely secondary to the steroids. Plan #1 Continue with Levaquin 750 mg every 24 hours, day 3 #2 Her blood pressure has been elevated therefore I will resume lisinopril now that her renal function has improved #3 continue with home medication for comorbidities #4 CBC and CMP in the morning #5 wean off of oxygen and start incentive spirometer #6 stop methylprednisolone and start prednisone 40 mg daily for 2 more days. #7 I will start her on insulin lispro 15 units before meals plus low-dose insulin sliding scale - Problems/Diagnosis (1) Pneumonia Problem: Acute Qualifiers: Pneumonia type: due to unspecified organism Laterality: right Lung location: middle lobe of lung Qualified Code(s): J18.9 - Pneumonia, unspecified organism (2) Acute renal failure superimposed on stage 3 chronic kidney disease Problem: Resolved (3) Dehydration Problem: Resolved (4) Triple negative malignant neoplasm of breast Problem: Chronic (5) Type II diabetes mellitus Problem: Chronic Qualifiers: Diabetes mellitus manager terminal insulin use: with care home use Diabetes mellitus complication status: with kidney complications Diabetes mellitus complication detail: with chronic kidney disease Chronic kidney disease stage: stage 3 (moderate) Qualified Code(s): E11.22 - Type 2 diabetes mellitus with diabetic chronic kidney disease; N18.3 - Chronic kidney disease, stage 3 (moderate); Z79.4 - manager terminal (current) use of insulin (6) Diabetes mellitus, type II Problem: Chronic Qualifiers: Diabetes mellitus manager terminal insulin use: with care home use (7) GERD (gastroesophageal reflux disease) Problem: Chronic Qualifiers: Esophagitis presence: esophagitis presence not specified Qualified Code(s): K21.9 - Gastro-esophageal reflux disease without esophagitis (8) Hyperlipidemia Problem: Chronic Qualifiers: Hyperlipidemia type: unspecified Qualified Code(s): E78.5 - Hyperlipidemia, unspecified (9) Hypertension Problem: Chronic Qualifiers: Hypertension type: essential hypertension Qualified Code(s): I10 - Essential (primary) hypertension (10) Obesity Problem: Chronic Qualifiers: Obesity type: due to excess calories Obesity classification: adult class 2 (BMI 35 - 39.9) Serious obesity comorbidity presence: with serious comorbidity Body mass index: BMI 39.0-39.9 Qualified Code(s): E66.01 - Morbid (severe) obesity due to excess calories; Z68.39 - Body mass index (BMI) 39.0-39.9, adult (11) Sepsis with encephalopathy and septic shock Problem: Resolved Qualifiers: Sepsis type: sepsis due to unspecified organism Qualified Code(s): A41.9 - Sepsis, unspecified organism; R65.21 - Severe sepsis with septic shock; G93.40 - Encephalopathy, unspecified (12) Lactic acidosis Problem: Resolved (13) Metabolic encephalopathy Problem: Resolved (14) Type II diabetes mellitus Problem: Chronic Qualifiers: Diabetes mellitus manager terminal insulin use: with manager terminal use Diabetes mellitus complication status: with kidney complications Diabetes mellitus complication detail: with chronic kidney disease Chronic kidney disease stage: stage 3 (moderate) Qualified Code(s): E11.22 - Type 2 diabetes mellitus with diabetic chronic kidney disease; N18.3 - Chronic kidney disease, stage 3 (moderate); Z79.4 - manager terminal (current) use of insulin
[2019-09-19] MEDS ORDERED: traMADol HCL 50 MG TABLET PO PRN (10:26)
[2019-09-19] MEDS ORDERED: FUROSEMIDE 20 MG TABLET PO ONE (11:44)
[2019-09-19] MEDS ORDERED: FUROSEMIDE 40 MG TABLET PO ONE ×2 (11:45→19:45)
[2019-09-19] MEDS: ENOXAPARIN SODIUM 40 MG/0.4 ML SYRG SC SCH (12:20)
[2019-09-19] MEDS: traZODone HCL 50 MG TABLET PO PRN (21:17)
[2019-09-20 06:33] LABS: Hematocrit 35.9 % (37.0-47.0); Hemoglobin 11.4 gm/dL (12.5-16.0); Mean Cell Volume 88.4 fl (78-100); Mean Corpuscular Hemoglobin 28.1 pg (27-31); Mean Corpuscular Hgb Conc 31.8 g/dl (32-36); Mean Platelet Volume 10.3 fl (8-12.5); Platelet Count 281 K/mm3 (150-450); Red Blood Count 4.06 M/mm3 (4.2-5.4); Red Cell Distribution Width 14.2 % (11.5-14.0); White Blood Count 30.9 K/mm3 (4.0-10.5)
[2019-09-20 06:36] LABS: Total Cells Counted 100
[2019-09-20 06:50] LABS: Albumin * 2.5 gm/dl (3.4-5.0); Anion Gap 14.1 mmol/L (6.8-13.8); Bilirubin, Total 0.2 mg/dL (0.0-1.1); Ca. Corrected For Albumin 10.7 mg/dL (8.4-10.2); Calcium * 9.8 mg/dL (7.9-10.9); Carbon Dioxide 26.3 mmol/L (24-32.6); Potassium 4.4 mmol/L (3.4-4.6); Total Protein 6.6 gm/dL (6.2-8.2)
[2019-09-20] MEDS: ALBUTEROL SULFATE/IPRATROPIUM 3 ML NEBU IH SCH ×2 (06:53→10:33)
[2019-09-20] MEDS: PANTOPRAZOLE SODIUM 40 MG TABLET.EC PO SCH (07:19)
[2019-09-20] MEDS: HYDROcodone/ACETAMINOPHEN 1 EACH TABLET PO PRN (07:19)
[2019-09-20 07:25] LABS: Neutrophil 75 % (42-75)
[2019-09-20 07:26] LABS: Atypical (Reactive) Lymph 1 % (0-2); Lymphocyte 19 % (20-51); Monocyte 5 % (0-9); Neutrophil # 23.2 K/mm3 (1.3-6.0)
[2019-09-20] MEDS: HUM INSULIN NPH/REG INSULIN HM 100 UNIT/ML VIAL SC SCH (07:28)
[2019-09-20] MEDS: INSULIN LISPRO 100 UNITS/ML VIAL SC SCH ×2 (07:29→12:15)
[2019-09-20 07:30] LABS: Anisocytosis 1+
[2019-09-20] MEDS: METOPROLOL TARTRATE 100 MG TABLET PO SCH ×2 (07:30→09:02)
[2019-09-20] MEDS: LISINOPRIL 40 MG TABLET PO SCH ×2 (07:32→09:03)
[2019-09-20] MEDS: ASPIRIN 81 MG TABLET.DR PO SCH (08:58)
[2019-09-20] MEDS: COLESTIPOL HCL 1 G TABLET PO SCH (08:58)
[2019-09-20] MEDS: SACCHAROMYCES BOULARDII 250 MG CAPSULE PO SCH (08:59)
[2019-09-20] MEDS: MULTIVITAMINS 1 CAP CAPSULE PO SCH (08:59)
[2019-09-20] MEDS: GABAPENTIN 400 MG CAPSULE PO SCH ×2 (09:00→13:15)
[2019-09-20] MEDS: amLODIPine BESYLATE 10 MG TABLET PO SCH (09:03)
[2019-09-20] MEDS: SERTRALINE HCL 100 MG TABLET PO SCH (09:05)
[2019-09-20] MEDS ORDERED: LEVOFLOXACIN 750 MG TABLET PO ONE (12:15)
[2019-09-20] MEDS: ACETAMINOPHEN 500 MG TABLET PO PRN (12:16)
[2019-09-20] MEDS: ENOXAPARIN SODIUM 40 MG/0.4 ML SYRG SC SCH (12:17)
--- NOTE | 2019-09-20 12:17 | DS ---
(1) Pneumonia Problem: Acute Qualifiers: Pneumonia type: due to unspecified organism Laterality: right Lung location: middle lobe of lung Qualified Code(s): J18.9 - Pneumonia, unspecified organism (2) Acute renal failure superimposed on stage 3 chronic kidney disease Problem: Resolved (3) Dehydration Problem: Resolved (4) Triple negative malignant neoplasm of breast Problem: Chronic (5) Type II diabetes mellitus Problem: Chronic Qualifiers: Diabetes mellitus intermediate insulin use: with terminal operator use Diabetes mellitus complication status: with kidney complications Diabetes mellitus complication detail: with chronic kidney disease Chronic kidney disease stage: stage 3 (moderate) Qualified Code(s): E11.22 - Type 2 diabetes mellitus with diabetic chronic kidney disease; N18.3 - Chronic kidney disease, stage 3 (moderate); Z79.4 - shelter (current) use of insulin (6) Diabetes mellitus, type II Problem: Chronic Qualifiers: Diabetes mellitus intermediate insulin use: with intermediate use (7) GERD (gastroesophageal reflux disease) Problem: Chronic Qualifiers: Esophagitis presence: esophagitis presence not specified Qualified Code(s): K21.9 - Gastro-esophageal reflux disease without esophagitis (8) Hyperlipidemia Problem: Chronic Qualifiers: Hyperlipidemia type: unspecified Qualified Code(s): E78.5 - Hyperlipidemia, unspecified (9) Hypertension Problem: Chronic Qualifiers: Hypertension type: essential hypertension Qualified Code(s): I10 - Essential (primary) hypertension (10) Obesity Problem: Chronic Qualifiers: Obesity type: due to excess calories Obesity classification: adult class 2 (BMI 35 - 39.9) Serious obesity comorbidity presence: with serious comorbidity Body mass index: BMI 39.0-39.9 Qualified Code(s): E66.01 - Morbid (severe) obesity due to excess calories; Z68.39 - Body mass index (BMI) 39.0-39.9, adult (11) Sepsis with encephalopathy and septic shock Problem: Resolved Qualifiers: Sepsis type: sepsis due to unspecified organism Qualified Code(s): A41.9 - Sepsis, unspecified organism; R65.21 - Severe sepsis with septic shock; G93.40 - Encephalopathy, unspecified (12) Lactic acidosis Problem: Resolved (13) Metabolic encephalopathy Problem: Resolved (14) Type II diabetes mellitus Problem: Chronic Qualifiers: Diabetes mellitus intermediate insulin use: with intermediate use Diabetes mellitus complication status: with kidney complications Diabetes mellitus complication detail: with chronic kidney disease Chronic kidney disease stage: stage 3 (moderate) Qualified Code(s): E11.22 - Type 2 diabetes mellitus with diabetic chronic kidney disease; N18.3 - Chronic kidney disease, stage 3 (moderate); Z79.4 - shelter (current) use of insulin Hospital Course: 54-year-old female with a history of right breast cancer on chemotherapy, hyp ertension, hyperlipidemia, GERD, COPD, diabetes mellitus type 2, obesity, peripheral neuropathy, iron deficiency anemia, depression, degenerative joint disease presents with complaints of weakness. She was found to have a right lower lobe pneumonia and started on, acute on chronic kidney disease, and dehydration. She was admitted and started on Zosyn, IV fluids with improvement of her symptoms. I spoke with the patient's oncologist Dr. Rod Anthony and he is in agreement with continuing treatment for the pneumonia. Her oncologist is also going to continue with the scheduled chemotherapy on September 26, 2019 as long as she has recovered from the pneumonia. He wants to give her medication to stimulate her immune system prior to that next dose of chemotherapy. She feels better today, her breathing has improved and she is off oxygen. She is ambulating independently. She is stable to be discharged home today. She will follow-up with me in the office in 1 week. Procedures Performed: none Results and Findings: Pending Mircobiology Results 09/16/19 16:37 Blood Blood Culture - Preliminary NO GROWTH AFTER 48 HOURS 09/16/19 16:24 Blood Blood Culture - Preliminary NO GROWTH AFTER 48 HOURS Lab Pending Results 09/16/19 16:24: WBC 3.0 L, RBC 3.67 L, Hgb 10.4 L, Hct 33.9 L, MCV 92.4, MCH 28.3, MCHC 30.7 L, RDW 13.5, Plt Count 206, MPV 10.0, Neutrophils % (Manual) 46, Band Neuts % (Manual) 9 H, Lymphocytes % (Manual) 19 L, Monocytes % (Manual) 25 H, Neutrophils # (Manual) 1.4, Lymphocytes # (Manual) 0.6 L, Monocytes # (Manual) 0.8, Nucleated RBCs 3.0 H, Atypic/Reactive Lymphs 1, Platelet Estimate Normal, RBC Morphology Normal 09/16/19 16:24: Sodium 136, Plasma Sodium 138, Potassium 4.1, Chloride 102, Carbon Dioxide 22.9 L, Anion Gap 15.2 H, BUN 34 H, Creatinine 2.52 H D, Est GFR (Non-Af Amer) 21 L D, BUN/Creatinine Ratio 13.5, Random Glucose 219 H, Calcium 8.9, Calcium Adj for Albumin 9.8, Total Bilirubin 0.4, AST 16, ALT 29, Alkaline Phosphatase 72, Total Protein 6.4, Albumin 2.5 L, Amylase 15 L, Lipase 41 L 09/16/19 16:24: Lactic Acid, Venous 3.3 H* 09/16/19 16:24: D-Dimer 0.90 H 09/16/19 19:05: Lactic Acid, Venous 1.8 09/16/19 22:00: Lactic Acid, Venous 1.1 09/17/19 06:32: Urine Color Yellow, Urine Appearance Clear, Urine pH 6.0, Ur Specific [place] 1.015, Urine Protein 15 H, Urine Glucose (UA) Negative, Urine Ketones Negative, Urine Blood 50 H, Urine Nitrate Negative, Urine Bilirubin Negative, Prot Sulfosalicylic Acd Negative, Urine Urobilinogen Normal, Ur Leukocyte Esterase Negative, Urine RBC 0-5, Urine WBC None seen, Ur Epithelial Cells 0-5, Urine Bacteria Trace, Urine Culture Comments No culture indicated 09/17/19 09:26: Sodium 133, Plasma Sodium 137, Potassium 4.9 H, Chloride 103, Carbon Dioxide 17.2 L, Anion Gap 17.7 H, BUN 35 H, Creatinine 1.63 H D, Est GFR (Non-Af Amer) 35 L D, BUN/Creatinine Ratio 21.5, Random Glucose 326 H D, Calcium 7.9, Calcium Adj for Albumin 9.1, Total Bilirubin 0.3, AST 23, ALT 26, Alkaline Phosphatase 65, Total Protein 6.1 L, Albumin 2.1 L 09/17/19 09:30: WBC 9.2 D, RBC 3.52 L, Hgb 10.0 L, Hct 32.8 L, MCV 93.2, MCH 28.4, MCHC 30.5 L, RDW 13.5, Plt Count 198, MPV 10.6, Neutrophils % (Manual) 44, Band Neuts % (Manual) 22 H, Lymphocytes % (Manual) 12 L, Monocytes % (Manual) 22 H, Neutrophils # (Manual) 4.0, Lymphocytes # (Manual) 1.1 L, Monocytes # (Manual) 2.0 H, Platelet Estimate Normal, RBC Morphology Normal 09/18/19 06:08: WBC 21.3 H D, RBC 3.69 L, Hgb 10.6 L, Hct 33.9 L, MCV 91.9, MCH 28.7, MCHC 31.3 L, RDW 13.9, Plt Count 254, MPV 11.1, Neutrophils % (Manual) 78 H, Band Neuts % (Manual) 6 H, Lymphocytes % (Manual) 5 L, Monocytes % (Manual) 11 H, Neutrophils # (Manual) 16.6 H, Lymphocytes # (Manual) 1.1 L, Monocytes # (Manual) 2.3 H, Platelet Estimate Normal, RBC Morphology Normal 09/18/19 06:08: Sodium 131 L, Plasma Sodium 135, Potassium 5.1 H, Chloride 101, Carbon Dioxide 22.1 L, Anion Gap 13.0, BUN 41 H, Creatinine 1.40, Est GFR (Non- Af Amer) 41 L, BUN/Creatinine Ratio 29.3 H, Random Glucose 324 H, Calcium 8.6, Calcium Adj for Albumin 9.8, Total Bilirubin 0.2, AST 28, ALT 30, Alkaline Phosphatase 79, Total Protein 6.4, Albumin 2.1 L 09/19/19 06:05: WBC 30.4 H D, RBC 3.61 L, Hgb 10.4 L, Hct 32.3 L, MCV 89.5, MCH 28.8, MCHC 32.2, RDW 14.1 H, Plt Count 276, MPV 11.0, Neutrophils % (Manual) 85 H, Band Neuts % (Manual) 2, Lymphocytes % (Manual) 5 L, Monocytes % (Manual) 8, Neutrophils # (Manual) 25.8 H, Lymphocytes # (Manual) 1.5, Monocytes # (Manual) 2.4 H, Platelet Estimate Normal, Poikilocytosis Trace, Anisocytosis Trace 09/19/19 06:05: Sodium 135, Plasma Sodium 139, Potassium 5.2 H, Chloride 103, Carbon Dioxide 22.4 L, Anion Gap 14.8 H, BUN 42 H, Creatinine 1.34, Est GFR (Non-Af Amer) 43 L, BUN/Creatinine Ratio 31.3 H, Random Glucose 337 H, Calcium 9.2, Calcium Adj for Albumin 10.3 H, Total Bilirubin 0.2, AST 17, ALT 30, Alkaline Phosphatase 101, Total Protein 6.2, Albumin 2.2 L 09/20/19 06:07: WBC 30.9 H, RBC 4.06 L, Hgb 11.4 L, Hct 35.9 L, MCV 88.4, MCH 28.1, MCHC 31.8 L, RDW 14.2 H, Plt Count 281, MPV 10.3, Neutrophils % (Manual) 75, Lymphocytes % (Manual) 19 L, Monocytes % (Manual) 5, Neutrophils # (Manual) 23.2 H, Lymphocytes # (Manual) 5.9 H, Monocytes # (Manual) 1.5 H, Nucleated RBCs 5.0 H, Atypic/Reactive Lymphs 1, Anisocytosis 1+ 09/20/19 06:07: Sodium 137, Plasma Sodium 140, Potassium 4.4, Chloride 101, Carbon Dioxide 26.3, Anion Gap 14.1 H, BUN 49 H, Creatinine 1.36, Est GFR (Non- Af Amer) 43 L, BUN/Creatinine Ratio 36.0 H, Random Glucose 297 H, Calcium 9.8, Calcium Adj for Albumin 10.7 H, Total Bilirubin 0.2, AST 17, ALT 31, Alkaline Phosphatase 132, Total Protein 6.6, Albumin 2.5 L Discharge Location: Home Disposition: Home self-care Condition: Good Discharge Activity: Activity as tolerated Discharge Diet: General/regular food Referrals: Marychuy Baig MD [Primary Care Provider] - Prescriptions (Any new or edited meds): Levofloxacin [Levaquin] 750 mg PO Q48H #1 tab Transmission Status: Pending to [facility] #[id number] guaiFENesin [Mucinex] 600 mg PO BID PRN #14 tablet.sa PRN Reason: Cough Transmission Status: Pending to [facility] #[id number] Complete Home Medications List: Complete Home Medication List: acetaminophen 500 mg tablet 1,000 mg PO Q6H PRN tab 11/04/18 albuterol sulfate 2.5 mg/0.5 mL solution for nebulization 2.5 mg INHALATION Q6H PRN #30 ea 12/07/18 albuterol sulfate 90 mcg/actuation aerosol inhaler 2 inh IH Q6H PRN #8.5 g 04/14/19 tiotropium bromide 18 mcg capsule with inhalation device 1 cap IH DAILY 04/27/19 hydrocodone 5 mg-acetaminophen 325 mg tablet 1 tab PO Q8H PRN #30 tab 06/15/19 lisinopril 40 mg tablet 40 mg PO BID #60 tab 06/20/19 ranitidine HCl 150 mg tablet 150 mg PO BID #60 tab 06/20/19 sertraline 100 mg tablet 100 mg PO DAILY #90 tab 07/07/19 trazodone 100 mg tablet 100 mg PO HS PRN #30 tab 07/20/19 aspirin 81 mg tablet,delayed release 81 mg PO DAILY 07/28/19 colestipol 1 gram tablet 1 g PO BID 07/28/19 multivitamin 1 tab PO DAILY 07/28/19 amlodipine 10 mg tablet See Rx Instructions .ROUTE .COMPLEX #90 tab 09/11/19 omeprazole 40 mg capsule,delayed release See Rx Instructions .ROUTE .COMPLEX #90 capsule 09/11/19 furosemide 40 mg tablet 40 mg PO DAILY #30 tab 09/13/19 Insulin NPH Hum/Reg Insulin Hm [Humulin 70-30] 35 unit SUBCUT QPM 09/16/19 Insulin NPH Hum/Reg Insulin Hm [Humulin 70-30] 75 unit SUBCUT QAM 09/16/19 Blood-Glucose Meter [Blood Glucose Meter] 1 [facility] 09/18/19 Dexamethasone 8 mg PO PRN PRN 09/18/19 Gabapentin 800 mg PO TID 09/18/19 Lancets 1 [facility] 09/18/19 Metoprolol Tartrate 200 mg PO DAILY 09/18/19 Ondansetron [Zuplenz] 8 mg PO Q8H PRN 09/18/19 Prochlorperazine Maleate [Compazine] 10 mg PO Q6H PRN 09/18/19 Syrge-Ndl,Ins 0.3 ml Half Efrain [Insulin Syringe] 1 [facility] 09/18/19 traMADol HCL [Ultram] 50 mg PO BID PRN 09/18/19 Levofloxacin [Levaquin] 750 mg PO Q48H #1 tab 09/20/19 guaiFENesin [Mucinex] 600 mg PO BID PRN #14 tablet.sa 09/20/19
[2019-09-20 12:34] VITALS: BP 167/65
== END 2019-09-20 13:30 | disposition home or self-care (01) | DRG 871 ==
LOC: ER 15:48 → MS 18:06
PROVIDERS: ADMIT Family Medicine; ATTEND Internal Medicine
CPT/HCPCS: 36415; 70450; 71020; 71046; 74019; 74020; 80053; 81001; 82150; 83605; 83690; 85007; 85025; 85379; 87040; 94640; 94664; 96361; 96374; 99285

== ENCOUNTER 2019-10-23 13:12 | Inpatient (IN) ==
--- NOTE | 2019-10-23 14:05 | ERNOTE ---
Time Seen by Provider: 10/23/19 13:12 Stated Complaint: leg pain Source: patient Exam Limitations: no limitations Immunizations: IMMUNIZATION HX Immunizations Up to Date Yes History of Influenza Vaccine Yes Hx Pneumococcal Vaccination Yes Allergies/Adverse Reactions: Allergies atorvastatin calcium [From Lipitor] Allergy (Mild, Verified 10/23/19 15:36) Hives started taking this along with Percocet and Plavix, unsure which med caused the reaction. clopidogrel bisulfate [From Plavix] Allergy (Mild, Verified 10/23/19 15:36) Hives started to take this med along with Lipitor and Percocet, unsure which med caused the reaction oxycodone HCl [From Percocet] Allergy (Mild, Verified 10/23/19 15:36) Hives started taking this along with Lipitor and Plavix and had the reaction. Unsure to which med. Penicillins Allergy (Mild, Verified 10/23/19 15:36) RASH, SWELLING Home Medications: HOME MEDICATIONS acetaminophen 500 mg tablet 1,000 mg PO Q6H PRN tab 11/04/18 [Last Taken Unknown] albuterol sulfate 90 mcg/actuation aerosol inhaler 2 inh IH Q6H PRN #8.5 g 04/14/19 [Last Taken Unknown] tiotropium bromide 18 mcg capsule with inhalation device 1 cap IH DAILY 04/27/19 [Last Taken Unknown] sertraline 100 mg tablet 100 mg PO DAILY #90 tab 07/07/19 [Last Taken Unknown] trazodone 100 mg tablet 100 mg PO HS PRN #30 tab 07/20/19 [Last Taken Unknown] aspirin 81 mg tablet,delayed release 81 mg PO DAILY 07/28/19 [Last Taken Unknown] multivitamin 1 tab PO DAILY 07/28/19 [Last Taken Unknown] Insulin NPH Hum/Reg Insulin Hm [Humulin 70-30] 35 unit SUBCUT QPM 09/16/19 [Last Taken Unknown] Insulin NPH Hum/Reg Insulin Hm [Humulin 70-30] 75 unit SUBCUT QAM 09/16/19 [Last Taken Unknown] Blood-Glucose Meter [Blood Glucose Meter] 1 [facility] 09/18/19 [Last Taken Unknown] Lancets 1 [facility] 09/18/19 [Last Taken Unknown] Ondansetron [Zuplenz] 8 mg PO Q8H PRN 09/18/19 [Last Taken Unknown] Prochlorperazine Maleate [Compazine] 10 mg PO Q6H PRN 09/18/19 [Last Taken Unknown] Syrge-Ndl,Ins 0.3 ml Half Efrain [Insulin Syringe] 1 [facility] 09/18/19 [Last Taken Unknown] albuterol sulfate 2.5 mg IH Q6H PRN #90 ml 09/22/19 [Last Taken Unknown] gabapentin 400 mg capsule 400 mg PO TID #90 cap 09/28/19 [Last Taken Unknown] gabapentin 600 mg tablet 600 mg PO TID #90 tab 09/28/19 [Last Taken Unknown] hydrocodone 5 mg-acetaminophen 325 mg tablet 1 tab PO BID PRN #60 tab 09/28/19 [Last Taken Unknown] Furosemide [Lasix] 40 mg PO DAILY 10/23/19 [Last Taken Unknown] Lisinopril [Zestril] 40 mg PO BID 10/23/19 [Last Taken Unknown] Metoprolol Tartrate 200 mg PO BID 10/23/19 [Last Taken Unknown] Omeprazole 40 mg PO DAILY 10/23/19 [Last Taken Unknown] Ranitidine HCl [Zantac] 150 mg PO BID 10/23/19 [Last Taken Unknown] amLODIPine BESYLATE [Norvasc] 10 mg PO DAILY 10/23/19 [Last Taken Unknown] - History of Present Ilness Narrative: Patient was transferred from [place] for admission for pneumonia. She has a history of breast cancer, last chemo seven days ago. She fell this morning injuring both her ankles (denies head injury of loss of consciousness), she went to the ER, was found to have low O2 sat and CXR showed pneumonia, strep/flu negative, WBC12.3, O2sats 94% on 2 liters.Ankle Xrays showed no fracture. The ERP discussed this with her oncologist who recommended IV levaquin. Patient's PCP is Dr Baig and patient requested transfer to this facility, patient was discussed with Dr Baig Patients O2 sat 84% on RA here on arrival, finished levaquin prior to arriving here Frequency/Possible Cause: Reports: occasional episodes Review of Systems - Review of Systems Constitutional: Present: recent illness, fever, chills, malaise ENT: Absent: nose congestion Respiratory: Present: shortness of breath, cough Cardiology: Present: chest pain Gastrointestinal/Abdominal: Absent: nausea, abdominal pain Genitourinary: Present: no symptoms reported Musculoskeletal: Absent: back pain Neurological: Absent: headache Medical History (Last Reviewed 10/23/19 @ 14:21 by Zulma Barfield MD) Injury of left elbow (Resolved) Left wrist injury (Resolved) Depression (Acute) Iron deficiency (Chronic) Chronic pain (Chronic) Peptic ulcer disease (Chronic) GERD (gastroesophageal reflux disease) (Chronic) Hyperlipidemia (Chronic) Type II diabetes mellitus (Chronic) Hypertension (Chronic) Pyelonephritis (Acute) Breast cancer Onset Date: ~11/2018 right Lung mass Onset Date: ~11/2018 COPD (chronic obstructive pulmonary disease) Onset Date: Unknown Carpal tunnel syndrome Onset Date: ~05/21/17 Chronic pain Onset Date: ~05/21/17 Cubital tunnel syndrome Onset Date: ~05/21/17 DJD (degenerative joint disease) of cervical spine Onset Date: ~05/21/17 GERD (gastroesophageal reflux disease) Onset Date: Unknown Hyperlipidemia Onset Date: ~05/21/17 Hypertension Onset Date: Unknown Iron deficiency anemia Onset Date: ~05/21/17 Morbid obesity Onset Date: ~05/21/17 Obesity Class III = extreme obesity PUD (peptic ulcer disease) Onset Date: ~05/21/17 Peripheral neuropathic pain Onset Date: ~05/21/17 Peripheral neuropathy Onset Date: ~05/21/17 Primary osteoarthritis involving multiple joints Onset Date: ~05/21/17 Headache Onset Date: Unknown Surgical History: Surgical History (Last Reviewed 10/23/19 @ 14:22 by Zulma Barfield MD) History of lumpectomy of right breast Onset Date: 04/19/19 w/SLN biopsy for invasive ductal carcinoma H/O foot surgery Onset Date: 02/13/10 Dr Win-right 01/09/10, left 02/13/10 - Excision of plantar fibroma History of breast biopsy Onset Date: 12/07/18 ultrasound guided right breast bx-infiltrating ductal ca. History of colonoscopy Onset Date: 06/14/17 Reinaldoan-hyperplastic polyp. Recheck 5-10 yrs. History of temporal artery biopsy Onset Date: 12/10/17 [id number] S/P tubal ligation Onset Date: ~1989 Stenosis of peripheral vascular stent Onset Date: ~2011 [facility] Family History: Family History (Last Reviewed 10/23/19 @ 15:35 by Marilynn Mohan RN) Brother Cancer colon ca (dx age 52) CVA (cerebral vascular accident) Myocardial infarction Daughter Hypertension Lupus Cancer cervical ca (dx age 30's) Father , age 60's-[place] Myocardial infarction Diabetes Hypertension Mother , age 60's-ALS Cancer cervical Amyotrophic lateral sclerosis (ALS) Sister , 8 month old-pneumonia Seizure Sister blood clots Brother unknown health history Daughter Diabetes Hypertension Cancer cervical ca (dx age 26) Aunt Cancer 2 maternal-brain tumor Aunt Cancer paternal-breast ca (unknown age of dx) Social History: (Last Reviewed 10/23/19 @ 15:35 by Marilynn Mohan RN) Social History: longterm: No Marital status: household members: spouse number of children: 4 current occupational status: other current occupation: unemployed Highest education level completed: high school graduate Service: No Tobacco: Smoking Status: Former smoker second hand exposure: No Alcohol: alcohol intake: current alcohol intake frequency: holiday/special occasion Substance Use: substance use type: does not use Dietary Habits: caffeine: Yes Type: coffee Exercise: frequency: 3-4 times per week Personal Safety: victim of physical abuse: No victim of emotional abuse: No Physical Exam - Physical Exam General Appearance: Present: wd/wn, alert Head Exam: Present: normal inspection Respiratory: Present: no respiratory distress, normal breath sounds, no accessory muscle use, lungs clear Cardiovascular/Chest: Present: regular rate, rhythm, no murmur Gastrointestinal/Abdominal: Present: normal bowel sounds, nontender Neurological Exam: Present: alert, oriented, normal mood/affect Skin Exam: Present: warm/dry, pallor Progress - Results and Orders Patient's Lab Results:: I have reviewed the patient's lab results. - reviewed labs from [place] - Vital Signs Patient's Vital Signs:: I have reviewed the patient's vital signs. Vital Signs: Vital Signs 10/23/19 13:16 10/23/19 13:23 10/23/19 13:52 Temperature 36.3 C 36.4 C Pulse Rate 68 68 Respiratory Rate 20 Blood Pressure 115/43 99/49 O2 Sat by Pulse Oximetry 89 L 91 L 91 L - Progress/Reassessment Chief Complaint: Upper Respiratory Symptoms Progress Note-Subjective: 10/23/19 14:[address] Baig PSI 116, class IV 10/23/19 14:[address] Baig, okay to admit Departure Clinical Impression: Hypoxemia Pneumonia Qualifiers: Pneumonia type: due to unspecified organism Laterality: right Lung location: lower lobe of lung Qualified Code(s): J18.9 - Pneumonia, unspecified organism - Departure Disposition: Still a patient Condition: Stable
[2019-10-23] MEDS ORDERED: PROCHLORPERAZINE MALEATE 10 MG TABLET PO PRN (16:13)
[2019-10-23] MEDS ORDERED: NON-FORMULARY 1 DOSE DOSE (Albuterol Sulfate 2.5 MG) IH PRN (16:13)
--- NOTE | 2019-10-23 16:30 | HP ---
Chief Complaint - Chief Complaint Date of Service: 10/23/19 Time of Service: 15:47 Chief Complaint: Weakness, productive cough History of Present Illness: 54-year-old female with a past diabetes mellitus type 2, iron deficiency, depre ssion, GERD, right breast cancer currently undergoing chemotherapy, COPD, hypertension, degenerative joint disease, hyperlipidemia, obesity, peripheral neuropathy, osteoarthritis presents from [facility] with complaints of pneumonia. She states she has had a productive cough with green sputum for the past 3 or 4 days. The states the patient fell at home this morning. Patient states she was feeling a little bit dizzy and weak at that time. EMS was called and she was taken to [facility]. She was found to have right lower lobe pneumonia on chest x-ray and the physician wanted to admit her. Patient requested to be transferred to [facility] for admission because her physicians PCP and oncologist are here. The patient was brought by EMS to the hospital emergency room. On presentation she was found to have oxygen of 84% on room air. Blood work from [place] ER showed white blood cell of 12.3, right ankle x-ray of showed no fracture. She did receive a dose of IV Levaquin prior to presentation. She is being admitted for pneumonia. Medical History (Last Reviewed 10/23/19 @ 15:35 by Marilynn Mohan RN) Injury of left elbow (Resolved) Left wrist injury (Resolved) Depression (Acute) Iron deficiency (Chronic) Chronic pain (Chronic) Peptic ulcer disease (Chronic) GERD (gastroesophageal reflux disease) (Chronic) Hyperlipidemia (Chronic) Type II diabetes mellitus (Chronic) Hypertension (Chronic) Pyelonephritis (Acute) Breast cancer Onset Date: ~11/2018 right Lung mass Onset Date: ~11/2018 COPD (chronic obstructive pulmonary disease) Onset Date: Unknown Carpal tunnel syndrome Onset Date: ~05/21/17 Chronic pain Onset Date: ~05/21/17 Cubital tunnel syndrome Onset Date: ~05/21/17 DJD (degenerative joint disease) of cervical spine Onset Date: ~05/21/17 GERD (gastroesophageal reflux disease) Onset Date: Unknown Hyperlipidemia Onset Date: ~05/21/17 Hypertension Onset Date: Unknown Iron deficiency anemia Onset Date: ~05/21/17 Morbid obesity Onset Date: ~05/21/17 Obesity Class III = extreme obesity PUD (peptic ulcer disease) Onset Date: ~05/21/17 Peripheral neuropathic pain Onset Date: ~05/21/17 Peripheral neuropathy Onset Date: ~05/21/17 Primary osteoarthritis involving multiple joints Onset Date: ~05/21/17 Headache Onset Date: Unknown Surgical History: Surgical History (Last Reviewed 10/23/19 @ 15:35 by Marilynn Mohan RN) History of lumpectomy of right breast Onset Date: 04/19/19 w/SLN biopsy for invasive ductal carcinoma H/O foot surgery Onset Date: 02/13/10 Dr Win-right 01/09/10, left 02/13/10 - Excision of plantar fibroma History of breast biopsy Onset Date: 12/07/18 ultrasound guided right breast bx-infiltrating ductal ca. History of colonoscopy Onset Date: 06/14/17 Tosin-hyperplastic polyp. Recheck 5-10 yrs. History of temporal artery biopsy Onset Date: 12/10/17 [id number] S/P tubal ligation Onset Date: ~1989 Stenosis of peripheral vascular stent Onset Date: ~[address] [facility] Family History: Family History (Last Reviewed 10/23/19 @ 15:35 by Marilynn Mohan RN) Brother Cancer colon ca (dx age 52) CVA (cerebral vascular accident) Myocardial infarction Daughter Hypertension Lupus Cancer cervical ca (dx age 30's) Father , age 60's-[place] Myocardial infarction Diabetes Hypertension Mother , age 60's-ALS Cancer cervical Amyotrophic lateral sclerosis (ALS) Sister , 8 month old-pneumonia Seizure Sister blood clots Brother unknown health history Daughter Diabetes Hypertension Cancer cervical ca (dx age 26) Aunt Cancer 2 maternal-brain tumor Aunt Cancer paternal-breast ca (unknown age of dx) Social History: (Last Reviewed 10/23/19 @ 15:35 by Marilynn Mohan RN) Social History: snf: No Marital status: household members: spouse number of children: 4 current occupational status: other current occupation: unemployed Highest education level completed: high school graduate Service: No Tobacco: Smoking Status: Former smoker second hand exposure: No Alcohol: alcohol intake: current alcohol intake frequency: holiday/special occasion Substance Use: substance use type: does not use Dietary Habits: caffeine: Yes Type: coffee Exercise: frequency: 3-4 times per week Personal Safety: victim of physical abuse: No victim of emotional abuse: No Review Of Systems (GEN) - Review of Systems Generalized/Overall Review: Present: Weakness. Absent: Fever Respiratory: Present: Cough - Productive of green sputum, Shortness of Breath Cardiac: Present: Edema - Bilateral lower extremities. Absent: Chest Pain Abdominal: Absent: Nausea, Vomiting, Abdominal Pain Musculoskeletal: Present: Joint Pain - Right ankle Misc: All systems neg except as marked Immunizations: IMMUNIZATION HX Immunizations Up to Date Yes History of Influenza Vaccine Yes Hx Pneumococcal Vaccination Yes Allergies/Adverse Reactions: Allergies Allergy/AdvReac Type Severity Reaction Status Date / Time atorvastatin calcium Allergy Mild Hives Verified 10/23/19 15:36 [From Lipitor] clopidogrel bisulfate Allergy Mild Hives Verified 10/23/19 15:36 [From Plavix] oxycodone HCl [From Percocet] Allergy Mild Hives Verified 10/23/19 15:36 Penicillins Allergy Mild RASH, Verified 10/23/19 15:36 SWELLING Home Medications: HOME MEDICATIONS acetaminophen 500 mg tablet 1,000 mg PO Q6H PRN tab 11/04/18 [Last Taken Unknown] albuterol sulfate 90 mcg/actuation aerosol inhaler 2 inh IH Q6H PRN #8.5 g 04/14/19 [Last Taken Unknown] tiotropium bromide 18 mcg capsule with inhalation device 1 cap IH DAILY 04/27/19 [Last Taken Unknown] sertraline 100 mg tablet 100 mg PO DAILY #90 tab 07/07/19 [Last Taken Unknown] trazodone 100 mg tablet 100 mg PO HS PRN #30 tab 07/20/19 [Last Taken Unknown] aspirin 81 mg tablet,delayed release 81 mg PO DAILY 07/28/19 [Last Taken Unknown] multivitamin 1 tab PO DAILY 07/28/19 [Last Taken Unknown] Insulin NPH Hum/Reg Insulin Hm [Humulin 70-30] 35 unit SUBCUT QPM 09/16/19 [Last Taken Unknown] Insulin NPH Hum/Reg Insulin Hm [Humulin 70-30] 75 unit SUBCUT QAM 09/16/19 [Last Taken Unknown] Blood-Glucose Meter [Blood Glucose Meter] 1 [facility] 09/18/19 [Last Taken Unknown] Lancets 1 [facility] 09/18/19 [Last Taken Unknown] Ondansetron [Zuplenz] 8 mg PO Q8H PRN 09/18/19 [Last Taken Unknown] Prochlorperazine Maleate [Compazine] 10 mg PO Q6H PRN 09/18/19 [Last Taken Unknown] Syrge-Ndl,Ins 0.3 ml Half Efrain [Insulin Syringe] 1 [facility] 09/18/19 [Last Taken Unknown] albuterol sulfate 2.5 mg IH Q6H PRN #90 ml 09/22/19 [Last Taken Unknown] gabapentin 400 mg capsule 400 mg PO TID #90 cap 09/28/19 [Last Taken Unknown] gabapentin 600 mg tablet 600 mg PO TID #90 tab 09/28/19 [Last Taken Unknown] hydrocodone 5 mg-acetaminophen 325 mg tablet 1 tab PO BID PRN #60 tab 09/28/19 [Last Taken Unknown] Furosemide [Lasix] 40 mg PO DAILY 10/23/19 [Last Taken Unknown] Lisinopril [Zestril] 40 mg PO BID 10/23/19 [Last Taken Unknown] Metoprolol Tartrate 200 mg PO BID 10/23/19 [Last Taken Unknown] Omeprazole 40 mg PO DAILY 10/23/19 [Last Taken Unknown] Ranitidine HCl [Zantac] 150 mg PO BID 10/23/19 [Last Taken Unknown] amLODIPine BESYLATE [Norvasc] 10 mg PO DAILY 10/23/19 [Last Taken Unknown] Exam - Exam Vital Signs: Vital Signs - Last Taken Temp 36.4 C 10/23/19 15:32 Pulse 66 10/23/19 15:32 Resp 16 10/23/19 15:32 BP 126/47 10/23/19 15:32 Pulse Ox 96 10/23/19 15:32 Constitutional: Present: Alert, Cooperative, Well developed, Well nourished, Lethargic, Obese ENT Exam: Present: hearing grossly normal Eye Exam: bilateral eye: normal inspection, EOMI Neck: Present: non-tender, supple. Absent: lymphadenopathy (R), lymphadenopathy (L) Back Exam: Present: normal inspection, no CVA tenderness Respiratory: Present: lungs clear, no respiratory distress, no accessory muscle use, respiratory distress, No wheezing. Absent: crackles, rhonchi Cardiovascular/Chest: Present: normal peripheral pulses, regular rate, rhythm, no murmur, edema - 1+ pitting bilateral lower extremity edema Peripheral Pulses: dorsalis-pedis (R): 1+, dorsalis-pedis (L): 1+ Abdomen: Present: Normal bowel sounds, soft, nontender Extremity: Present: lower extremity edema - 1+ pitting bilateral lower extremities, other - Tenderness to palpation of the left lateral ankle Skin Exam: Present: normal color, warm/dry Neurologic: Present: alert, normal mood/affect Appearance: Present: appropriate appearance, appropriate insight Eye contact: Present: cooperative Thoughts: Present: normal thought pattern, normal mood /affect Diagnostic Studies: Laboratory Results Lactic Acid, Venous 1.7 mmol/L (0.4-2.0) 10/23/19 14:15 Procalcitonin 0.11 ng/mL (0.05-0.50) 10/23/19 14:15 Assessment/Plan - Narrative Narrative: 54-year-old female with a past diabetes mellitus type 2, iron deficiency, depression, GERD, right breast cancer currently undergoing chemotherapy, COPD, hypertension, degenerative joint disease, hyperlipidemia, obesity, peripheral neuropathy, osteoarthritis presents from [facility] with complaints of pneumonia. She states she has had a productive cough with green sputum for the past 3 or 4 days. The states the patient fell at home this morning. Patient states she was feeling a little bit dizzy and weak at that time. EMS was called and she was taken to [facility]. She was found to have right lower lobe pneumonia on chest x-ray and the physician wanted to admit her. Patient requested to be transferred to [facility] for admission because her physicians PCP and oncologist are here. The patient was brought by EMS to the hospital emergency room. On presentation she was found to have oxygen of 84% on room air. Blood work from [place] ER showed white blood cell of 12.3, right ankle x-ray of showed no fracture. She did receive a dose of IV Levaquin prior to presentation. She is being admitted for pneumonia. Plan #1 continue with Levaquin 750 mg IV daily, pharmacy to adjust #2 continue with oxygen as needed, goal greater than 90% saturation and titrate off as tolerated #3 Lovenox for DVT prophylaxis #4 consistent carb diet #5 resume home medications - Assessment/Plan (1) Right lower lobe pneumonia Problem: Acute (2) Triple negative malignant neoplasm of breast Problem: Chronic (3) CKD (chronic kidney disease) stage 3, GFR 30-59 ml/min Problem: Chronic (4) Hypoxia Problem: Acute (5) Diabetes mellitus, type II Problem: Chronic (6) Depression Problem: Chronic Qualifiers: (7) GERD (gastroesophageal reflux disease) Problem: Chronic Qualifiers: (8) Hyperlipidemia Problem: Chronic Qualifiers: (9) Hypertension Problem: Chronic Qualifiers: Hypertension type: essential hypertension (10) Morbid obesity with BMI of 40.0-44.9, adult Problem: Acute
[2019-10-23] MEDS: ENOXAPARIN SODIUM 40 MG/0.4 ML SYRG SC SCH (16:39)
[2019-10-23] MEDS: GABAPENTIN 400 MG CAPSULE PO SCH (16:39)
[2019-10-23] MEDS: HUM INSULIN NPH/REG INSULIN HM 100 UNIT/ML VIAL SC SCH (16:39)
[2019-10-23] MEDS: GABAPENTIN 600 MG TABLET PO SCH (16:39)
[2019-10-23] MEDS: ALBUTEROL SULFATE 2.5 MG/0.5 ML VIAL.NEB IH PRN ×2 (16:55→23:24)
[2019-10-23] MEDS: ACETAMINOPHEN 325 MG TABLET PO PRN (17:13)
[2019-10-23] MEDS: HYDROcodone/ACETAMINOPHEN 1 EACH TABLET PO PRN (19:48)
[2019-10-23] MEDS: FAMOTIDINE 20 MG TABLET PO SCH (21:04)
[2019-10-23] MEDS: LISINOPRIL 40 MG TABLET PO SCH (21:59)
[2019-10-23] MEDS: METOPROLOL TARTRATE 100 MG TABLET PO SCH (21:59)
[2019-10-23] MEDS: traZODone HCL 50 MG TABLET PO PRN (23:20)
[2019-10-24] MEDS: ACETAMINOPHEN 325 MG TABLET PO PRN (04:27)
[2019-10-24] MEDS: PANTOPRAZOLE SODIUM 40 MG TABLET.EC PO SCH (06:35)
[2019-10-24 06:41] LABS: Hematocrit 28.5 % (37.0-47.0); Hemoglobin 8.6 gm/dL (12.5-16.0); Mean Cell Volume 97.6 fl (78-100); Mean Corpuscular Hemoglobin 29.5 pg (27-31); Mean Corpuscular Hgb Conc 30.2 g/dl (32-36); Mean Platelet Volume 11.4 fl (8-12.5); Platelet Count 172 K/mm3 (150-450); Red Blood Count 2.92 M/mm3 (4.2-5.4); Red Cell Distribution Width 18.6 % (11.5-14.0); White Blood Count 32.1 K/mm3 (4.0-10.5)
[2019-10-24 06:43] LABS: Total Cells Counted 100
[2019-10-24 06:44] LABS: Albumin * 2.7 gm/dl (3.4-5.0); Anion Gap 11.8 mmol/L (6.8-13.8); BUN/Creatinine Ratio 30.8 (9.0-21.6); Bilirubin, Total 0.1 mg/dL (0.0-1.1); Ca. Corrected For Albumin 9.6 mg/dL (8.4-10.2); Calcium * 8.9 mg/dL (7.9-10.9); Carbon Dioxide 26.2 mmol/L (24-32.6)
[2019-10-24 07:10] LABS: Eosinophil 2 % (0-3); Immature Granulocyte 4 (0-1); Lymphocyte 7 % (20-51); Monocyte 16 % (0-9); Neutrophil 71 % (42-75); Neutrophil # 22.8 K/mm3 (1.3-6.0)
[2019-10-24 07:12] LABS: Anisocytosis 1+; Poikilocytosis 1+
[2019-10-24] MEDS: SERTRALINE HCL 100 MG TABLET PO SCH (08:31)
[2019-10-24] MEDS: FUROSEMIDE 40 MG TABLET PO SCH (08:31)
[2019-10-24] MEDS: GABAPENTIN 400 MG CAPSULE PO SCH ×3 (08:31→17:22)
[2019-10-24] MEDS: FAMOTIDINE 20 MG TABLET PO SCH ×2 (08:31→20:22)
[2019-10-24] MEDS: METOPROLOL TARTRATE 100 MG TABLET PO SCH ×2 (08:31→20:21)
[2019-10-24] MEDS: GABAPENTIN 600 MG TABLET PO SCH ×3 (08:31→17:22)
[2019-10-24] MEDS: MULTIVITAMINS 1 CAP CAPSULE PO SCH (08:31)
[2019-10-24] MEDS: LISINOPRIL 40 MG TABLET PO SCH ×2 (08:31→20:22)
[2019-10-24] MEDS: ASPIRIN 81 MG TABLET.DR PO SCH (08:31)
[2019-10-24] MEDS: HUM INSULIN NPH/REG INSULIN HM 100 UNIT/ML VIAL SC SCH ×2 (08:32→17:23)
[2019-10-24] MEDS: TIOTROPIUM BROMIDE 5 CAP INHALER IH SCH (08:32)
[2019-10-24] MEDS: HYDROcodone/ACETAMINOPHEN 1 EACH TABLET PO PRN ×2 (08:37→20:19)
--- NOTE | 2019-10-24 10:10 | PN ---
Subjective - Date and Time Seen Date: 10/24/19 Time: 08:54 Subjective Narrative: She states she does feel a little better today. She continues to have cough and shortness of breath. She is tolerating her diet. She complains of left ankle pain. Objective - Review of Systems Generalized/Overall Review: Denies: Chills, Fever Respiratory: Reports: Cough, Shortness of Breath Cardiac: Reports: Edema - Bilateral lower extremities. Denies: Chest Pain Abdominal: Denies: Abdominal Pain Musculoskeletal Complaints: Reports: Joint Pain - Left ankle Misc: All systems neg except as marked - Vitals Vitals: Last Vital Signs Temp 36.5 C 10/24/19 06:24 Pulse 69 10/24/19 08:31 Resp 12 10/24/19 06:24 BP 117/58 10/24/19 08:31 Pulse Ox 95 10/24/19 06:24 - Abnormal Lab Findings Abnormal Lab Findings: Abnormal Lab Results 10/24/19 10/24/19 Range/Units 06:23 06:23 WBC 32.1 H (4.0-10.5) K/mm3 RBC 2.92 L (4.2-5.4) M/mm3 Hgb 8.6 L (12.5-16.0) gm/dL Hct 28.5 L (37.0-47.0) % MCHC 30.2 L (32-36) g/dl RDW 18.6 H (11.5-14.0) % Lymphocytes % (Manual) 7 L (20-51) % Monocytes % (Manual) 16 H (0-9) % Immature Granulocytes 4 H (0-1) Neutrophils # (Manual) 22.8 H (1.3-6.0) K/mm3 Monocytes # (Manual) 5.1 H (0.0-1.0) k/mm3 Potassium 5.0 H (3.4-4.6) mmol/L BUN 41 H (3-23) mg/dL Est GFR (Non-Af Amer) 44 L (60-130) mL/min BUN/Creatinine Ratio 30.8 H (9.0-21.6) Random Glucose 300 H (70-110) mg/dL Total Protein 6.0 L (6.2-8.2) gm/dL Albumin 2.7 L (3.4-5.0) gm/dl - Exam Constitutional: Present: Alert, Cooperative, Well developed, Well nourished, No distress ENT Exam: Present: hearing grossly normal, moist mucous membranes Neck: Present: non-tender, supple. Absent: lymphadenopathy (R), lymphadenopathy (L) Respiratory: Present: no respiratory distress, no accessory muscle use, decreased breath sounds - Throughout all lung perez due to poor inspiratory effort, crackles - Mild crackles in bilateral bases, No wheezing. Absent: rhonchi Cardiovascular/Chest: Present: normal peripheral pulses - 1+ pitting bilateral lower extremities, regular rate, rhythm, no murmur, edema Abdomen: Present: Normal bowel sounds, soft, nontender, obese Extremity: Present: lower extremity edema - 1+ pitting bilateral lower extremities, other - Left ankle: Tenderness to palpation inferior to the lateral malleolus Skin Exam: Present: normal color, warm/dry Neurologic: Present: alert, normal mood/affect Appearance: Present: appropriate appearance Eye contact: Present: cooperative Thoughts: Present: normal thought pattern, normal mood /affect Assessment/Plan Plan Narrative: 54-year-old female with a past diabetes mellitus type 2, iron deficiency, depression, GERD, right breast cancer currently undergoing chemotherapy, COPD, hypertension, degenerative joint disease, hyperlipidemia, obesity, peripheral neuropathy, osteoarthritis presents from [facility] with complaints of pneumonia. She states she has had a productive cough with green sputum for the past 3 or 4 days. The states the patient fell at home this morning. Patient states she was feeling a little bit dizzy and weak at that time. EMS was called and she was taken to [facility]. She was found to have right lower lobe pneumonia on chest x-ray and the physician wanted to admit her. Patient requested to be transferred to [facility] for admission because her physicians PCP and oncologist are here. The patient was brought by EMS to the hospital emergency room. On presentation she was found to have oxygen of 84% on room air. Blood work from [place] [facility] showed white blood cell of 12.3, right ankle x-ray of showed no fracture. She did receive a dose of IV Levaquin prior to presentation. She is being admitted for pneumonia. She states she is feeling better today. Plan #1 continue with Levaquin 750 mg IV daily, day 2. #2 continue with oxygen as needed, goal greater than 90% saturation and titrate off as tolerated #3 Lovenox for DVT prophylaxis #4 consistent carb diet #5 resume home medications #6 start incentive spirometer and [place] - Problems/Diagnosis (1) Right lower lobe pneumonia Problem: Acute Qualifiers: Pneumonia type: due to group B Streptococcus Qualified Code(s): J15.3 - Pneumonia due to streptococcus, group B (2) Triple negative malignant neoplasm of breast Problem: Chronic (3) CKD (chronic kidney disease) stage 3, GFR 30-59 ml/min Problem: Chronic (4) Hypoxia Problem: Acute (5) Diabetes mellitus, type II Problem: Chronic (6) Depression Problem: Chronic Qualifiers: (7) GERD (gastroesophageal reflux disease) Problem: Chronic Qualifiers: (8) Hyperlipidemia Problem: Chronic Qualifiers: (9) Hypertension Problem: Chronic Qualifiers: Hypertension type: essential hypertension Qualified Code(s): I10 - Essential (primary) hypertension (10) Morbid obesity with BMI of 40.0-44.9, adult Problem: Acute
[2019-10-24] MEDS ORDERED: LEVOFLOXACIN IN DEXTROSE 5 % 750 MG/150 ML BAG IV SCH (12:00)
[2019-10-24] MEDS: ENOXAPARIN SODIUM 40 MG/0.4 ML SYRG SC SCH (17:22)
[2019-10-24] MEDS: traZODone HCL 50 MG TABLET PO PRN (20:26)
[2019-10-25] MEDS: ACETAMINOPHEN 325 MG TABLET PO PRN (03:24)
[2019-10-25] MEDS: PANTOPRAZOLE SODIUM 40 MG TABLET.EC PO SCH (06:51)
[2019-10-25 07:04] LABS: Albumin * 2.9 gm/dl (3.4-5.0); Anion Gap 11.2 mmol/L (6.8-13.8); BUN/Creatinine Ratio 29.3 (9.0-21.6); Bilirubin, Total 0.2 mg/dL (0.0-1.1); Ca. Corrected For Albumin 9.5 mg/dL (8.4-10.2); Calcium * 8.9 mg/dL (7.9-10.9); Carbon Dioxide 28.1 mmol/L (24-32.6); Potassium 4.3 mmol/L (3.4-4.6); Total Protein 6.3 gm/dL (6.2-8.2)
[2019-10-25 07:35] LABS: Hematocrit 29.1 % (37.0-47.0); Hemoglobin 8.9 gm/dL (12.5-16.0); Mean Cell Volume 97.3 fl (78-100); Mean Corpuscular Hemoglobin 29.8 pg (27-31); Mean Corpuscular Hgb Conc 30.6 g/dl (32-36); Mean Platelet Volume 11.1 fl (8-12.5); Platelet Count 174 K/mm3 (150-450); Red Blood Count 2.99 M/mm3 (4.2-5.4); Red Cell Distribution Width 18.9 % (11.5-14.0); White Blood Count 46.6 K/mm3 (4.0-10.5)
[2019-10-25 07:47] LABS: Total Cells Counted 100
[2019-10-25 08:18] LABS: Immature Granulocyte 2 (0-1); Lymphocyte 12 % (20-51); Monocyte 5 % (0-9); Neutrophil 81 % (42-75); Neutrophil # 37.7 K/mm3 (1.3-6.0)
[2019-10-25 08:20] LABS: Platelet Estimate Normal (NORMAL); RBC Morphology Normal (NORMAL)
[2019-10-25] MEDS: ASPIRIN 81 MG TABLET.DR PO SCH (10:21)
[2019-10-25] MEDS: FUROSEMIDE 40 MG TABLET PO SCH (10:21)
[2019-10-25] MEDS: LISINOPRIL 40 MG TABLET PO SCH (10:22)
[2019-10-25] MEDS: METOPROLOL TARTRATE 100 MG TABLET PO SCH (10:23)
[2019-10-25] MEDS: GABAPENTIN 400 MG CAPSULE PO SCH (10:23)
[2019-10-25] MEDS: SERTRALINE HCL 100 MG TABLET PO SCH (10:23)
[2019-10-25] MEDS: GABAPENTIN 600 MG TABLET PO SCH (10:24)
[2019-10-25] MEDS: FAMOTIDINE 20 MG TABLET PO SCH (10:24)
[2019-10-25] MEDS: MULTIVITAMINS 1 CAP CAPSULE PO SCH (10:24)
[2019-10-25] MEDS: HUM INSULIN NPH/REG INSULIN HM 100 UNIT/ML VIAL SC SCH (10:25)
[2019-10-25] MEDS: TIOTROPIUM BROMIDE 5 CAP INHALER IH SCH (10:26)
[2019-10-25] MEDS ORDERED: BENZONATATE 100 MG CAPSULE PO PRN (10:32)
[2019-10-25 10:36] VITALS: BP 148/55
--- NOTE | 2019-10-25 10:37 | DS ---
(1) Right lower lobe pneumonia Problem: Acute Qualifiers: Pneumonia type: due to group B Streptococcus Qualified Code(s): J15.3 - Pneumonia due to streptococcus, group B (2) Triple negative malignant neoplasm of breast Problem: Chronic (3) CKD (chronic kidney disease) stage 3, GFR 30-59 ml/min Problem: Chronic (4) Hypoxia Problem: Acute (5) Diabetes mellitus, type II Problem: Chronic (6) Depression Problem: Chronic Qualifiers: (7) GERD (gastroesophageal reflux disease) Problem: Chronic Qualifiers: (8) Hyperlipidemia Problem: Chronic Qualifiers: (9) Hypertension Problem: Chronic Qualifiers: Hypertension type: essential hypertension Qualified Code(s): I10 - Essential (primary) hypertension (10) Morbid obesity with BMI of 40.0-44.9, adult Problem: Acute Hospital Course: 54-year-old female with a past diabetes mellitus type 2, iron deficiency, depression, GERD, right breast cancer currently undergoing chemotherapy, COPD, hypertension, degenerative joint disease, hyperlipidemia, obesity, peripheral neuropathy, osteoarthritis presents from [facility] with complaints of pneumonia. She states she has had a productive cough with green sputum for the past 3 or 4 days. The states the patient fell at home this morning. Patient states she was feeling a little bit dizzy and weak at that time. EMS was called and she was taken to [facility]. She was found to have right lower lobe pneumonia on chest x-ray and the physician wanted to admit her. Patient requested to be transferred to [facility] for admission because her physicians PCP and oncologist are here. The patient was brought by EMS to the hospital emergency room. On presentation she was found to have oxygen of 84% on room air. Blood work from [place] [facility] showed white blood cell of 12.3, right ankle x-ray of showed no fracture. She did receive a dose of IV Levaquin prior to presentation. She was admitted for pneumonia. She is doing much better. She has been weaned off of the oxygen and is ambulating without difficulty. Her WBC has jumped up to 46,000. I did touch base with her oncologist Dr. Atnhony and he states she had a dose of Neulasta last week that is contributing to the significant elevation in WBCs. He states as long as she does not have a fever he is okay with her going home on oral antibiotics. She is afebrile, vitals are all stable and I will discharge her home on Levaquin. She will follow-up with me in my office in 1 week. Procedures Performed: none Results and Findings: Lab Pending Results 10/23/19 14:15: Lactic Acid, Venous 1.7 10/23/19 14:15: Procalcitonin 0.11 10/24/19 06:23: WBC 32.1 H, RBC 2.92 L, Hgb 8.6 L, Hct 28.5 L, MCV 97.6, MCH 29.5, MCHC 30.2 L, RDW 18.6 H, Plt Count 172, MPV 11.4, Neutrophils % (Manual) 71, Lymphocytes % (Manual) 7 L, Monocytes % (Manual) 16 H, Eosinophils % (Manu al) 2, Immature Granulocytes 4 H, Neutrophils # (Manual) 22.8 H, Lymphocytes # (Manual) 2.2, Monocytes # (Manual) 5.1 H, Eosinophils # (Manual) 0.6, Poikilocytosis 1+, Anisocytosis 1+ 10/24/19 06:23: Sodium 138, Plasma Sodium 141, Potassium 5.0 H, Chloride 105, Carbon Dioxide 26.2, Anion Gap 11.8, BUN 41 H, Creatinine 1.33, Est GFR (Non-Af Amer) 44 L, BUN/Creatinine Ratio 30.8 H, Random Glucose 300 H, Calcium 8.9, Calcium Adj for Albumin 9.6, Total Bilirubin 0.1, AST 17, ALT 23, Alkaline Phosphatase 140, Total Protein 6.0 L, Albumin 2.7 L 10/25/19 06:10: WBC 46.6 H D, RBC 2.99 L, Hgb 8.9 L, Hct 29.1 L, MCV 97.3, MCH 29.8, MCHC 30.6 L, RDW 18.9 H, Plt Count 174, MPV 11.1, Neutrophils % (Manual) 81 H, Lymphocytes % (Manual) 12 L, Monocytes % (Manual) 5, Immature Granulocytes 2 H, Neutrophils # (Manual) 37.7 H, Lymphocytes # (Manual) 5.6 H, Monocytes # (Manual) 2.3 H, Nucleated RBCs 3.0 H, Platelet Estimate Normal, RBC Morphology Normal 10/25/19 06:10: Sodium 139, Plasma Sodium 139, Potassium 4.3, Chloride 104, Carbon Dioxide 28.1, Anion Gap 11.2, BUN 36 H, Creatinine 1.23, Est GFR (Non-Af Amer) 48 L, BUN/Creatinine Ratio 29.3 H, Random Glucose 127 H D, Calcium 8.9, Calcium Adj for Albumin 9.5, Total Bilirubin 0.2, AST 19, ALT 24, Alkaline Phosphatase 134, Total Protein 6.3, Albumin 2.9 L Discharge Location: Home Disposition: Home self-care Condition: Stable Discharge Activity: Activity as tolerated Discharge Diet: Consistent carbs Referrals: Marychuy Baig MD [Primary Care Provider] - Prescriptions (Any new or edited meds): Levofloxacin [Levaquin] 750 mg PO DAILY@1100 #4 tab Transmission Status: Pending to [facility] #[id number] Benzonatate [Tessalon] 200 mg PO TID PRN #60 cap PRN Reason: Cough Transmission Status: Pending to [facility] #[id number] Complete Home Medications List: Complete Home Medication List: acetaminophen 500 mg tablet 1,000 mg PO Q6H PRN tab 11/04/18 albuterol sulfate 90 mcg/actuation aerosol inhaler 2 inh IH Q6H PRN #8.5 g 04/14/19 tiotropium bromide 18 mcg capsule with inhalation device 1 cap IH DAILY 04/27/19 sertraline 100 mg tablet 100 mg PO DAILY #90 tab 07/07/19 trazodone 100 mg tablet 100 mg PO HS PRN #30 tab 07/20/19 aspirin 81 mg tablet,delayed release 81 mg PO DAILY 07/28/19 multivitamin 1 tab PO DAILY 07/28/19 Insulin NPH Hum/Reg Insulin Hm [Humulin 70-30] 35 unit SUBCUT QPM 09/16/19 Insulin NPH Hum/Reg Insulin Hm [Humulin 70-30] 75 unit SUBCUT QAM 09/16/19 Blood-Glucose Meter [Blood Glucose Meter] 1 [facility] 09/18/19 Lancets 1 [facility] 09/18/19 Ondansetron [Zuplenz] 8 mg PO Q8H PRN 09/18/19 Prochlorperazine Maleate [Compazine] 10 mg PO Q6H PRN 09/18/19 Syrge-Ndl,Ins 0.3 ml Half Efrain [Insulin Syringe] 1 [facility] 09/18/19 albuterol sulfate 2.5 mg IH Q6H PRN #90 ml 09/22/19 gabapentin 400 mg capsule 400 mg PO TID #90 cap 09/28/19 gabapentin 600 mg tablet 600 mg PO TID #90 tab 09/28/19 hydrocodone 5 mg-acetaminophen 325 mg tablet 1 tab PO BID PRN #60 tab 09/28/19 Furosemide [Lasix] 40 mg PO DAILY 10/23/19 Lisinopril [Zestril] 40 mg PO BID 10/23/19 Metoprolol Tartrate 200 mg PO BID 10/23/19 Omeprazole 40 mg PO DAILY 10/23/19 Ranitidine HCl [Zantac] 150 mg PO BID 10/23/19 amLODIPine BESYLATE [Norvasc] 10 mg PO DAILY 10/23/19 Benzonatate [Tessalon] 200 mg PO TID PRN #60 cap 10/25/19 Levofloxacin [Levaquin] 750 mg PO DAILY@1100 #4 tab 10/25/19
[2019-10-25] MEDS ORDERED: LEVOFLOXACIN 750 MG TABLET PO SCH (11:00)
== END 2019-10-25 11:15 | disposition home or self-care (01) | DRG 194 ==
LOC: ER 13:12 → MS 14:49
PROVIDERS: ADMIT Internal Medicine; ATTEND Internal Medicine
CPT/HCPCS: 36415; 80053; 83605; 84145; 85007; 85025; 94640; 94664; 97116; 97161; 99284; 99285